=== PATIENT | male | born 1940 | race Caucasian/White ===

== ENCOUNTER → 2016-12-24 | Outpatient (CLI) | payer MEDICARE ==
--- NOTE | 2016-12-24 11:51 | FL ---
EXAMINATION TYPE: FL barium swallow DATE OF EXAM ORDERED: 12/24/2016 11:45 AM HISTORY: Parkinson's disease and dysphagia. COMPARISON: None. FINDINGS: The esophagus distended well with air and barium without evidence of obstructing or constr icting disease. Unfortunately, the patient frankly aspirated while drinking the barium. For this reason the examinati on was terminated. IMPRESSION: 1. MARKEDLY LIMITED EXAM SHOWING NO DEFINITE ABNORMALITY. 2. ALISIA ASPIRATION. A MODIFIED BARIUM SWALLOW WOULD BE SUGGESTED.
== END | disposition home or self-care (01) ==
LOC: RADFLWHC 11:03
PROVIDERS: ATTEND Psychiatry & Neurology Neurology
DX: R13.10 Dysphagia, unspecified (principal)
CPT/HCPCS: 74220

== ENCOUNTER → 2017-01-15 | Outpatient (CLI) | payer MEDICARE ==
--- NOTE | 2017-01-15 12:27 | FL ---
EXAMINATION TYPE: FL barium swallow w video DATE OF EXAM: 01/15/2017 11:43 AM COMPARISON: NONE HISTORY: Aspiration on barium swallow. The patient was evaluated in the lateral projection during real-time fluoroscopy, during ingestion of barium mixed with solids and liquids. No aspiration or laryngeal penetration. See report from [facility]. 1 minute 49 seconds fluoroscopy time
== END ==
LOC: RADFLMAIN 11:12
PROVIDERS: ATTEND Psychiatry & Neurology Neurology
DX: R13.10 Dysphagia, unspecified (principal)
CPT/HCPCS: 74230

== ENCOUNTER → 2018-10-05 | Outpatient (CLI) | payer MEDICARE ==
--- NOTE | 2018-10-05 11:46 | FL ---
ESOPHOGRAM. HISTORY: Dysphagia Esophagram was performed per the air contrast technique. The patient swallowed barium and effervesce nt crystals without difficulty or delay. Esophageal peristalsis and motility appear to be within normal limits. There is no evidence for filling defect, mass or diverticulum. No hiatal hernia seen. Subsequently single contrast cervical esophagram was performed which fails demonstrate evidence for a spiration. Mild penetration noted. No evidence for mass. IMPRESSION: 1. Mild penetration without evidence for aspiration. Otherwise unremarkable study.
--- NOTE | 2018-10-07 10:22 | US ---
EXAMINATION TYPE: US pelvic limited DATE OF EXAM: 10/05/2018 COMPARISON: NONE CLINICAL HISTORY: Nocturia R35.1,. TECHNIQUE: Targeted grayscale prevoid and postvoid images of the urinary bladder were obtained. FINDINGS: The urinary bladder appears anechoic. The postvoid urinary bladder measures 3.1 x 2.2 x 3.6 cm with a volume of 12.6 ml. IMPRESSION: No abnormal post void residual in this anechoic urinary bladder.
== END ==
LOC: RADUSWWP 10:08
PROVIDERS: ATTEND Family Medicine
DX: R35.1 Nocturia (principal); R13.10 Dysphagia, unspecified
CPT/HCPCS: 74220; 76857

== ENCOUNTER → 2019-07-19 | Outpatient (CLI) | payer MEDICARE ==
[2019-07-19 14:36] LABS: Basophils # (A) 0.1 k/uL (0-0.2); Basophils % (A) 1 %; Eosinophils # (A) 0.2 k/uL (0-0.7); Eosinophils % (A) 3 %; HCT 40.9 % (39.0-53.0); HGB 13.6 gm/dL (13.0-17.5); Lymphocytes # (A) 1.4 k/uL (1.0-4.8); Lymphocytes % (A) 20 %; MCHC 33.2 g/dL (31.0-37.0); MCV 93.4 fL (80.0-100.0); Mean Platelet Volume 7.8; Monocytes # (A) 0.4 k/uL (0-1.0); Monocytes % (A) 6 %; Neutrophils # (A) 4.9 k/uL (1.3-7.7); Neutrophils % (A) 68 %; Platelet Count 169 k/uL (150-450); RBC 4.38 m/uL (4.30-5.90); RDW 14.7 % (11.5-15.5); WBC 7.1 k/uL (3.8-10.6)
[2019-07-19 14:44] LABS: Calcium 9.6 mg/dL (8.4-10.2); Potassium 4.6 mmol/L (3.5-5.1)
== END | disposition home or self-care (01) ==
LOC: LABPAT 12:04
PROVIDERS: ATTEND Urology
DX: Z01.812 Encounter for preprocedural laboratory examination (principal); I10 Essential (primary) hypertension; N52.9 Male erectile dysfunction, unspecified; R35.0 Frequency of micturition; Z79.899 Other long term (current) drug therapy
CPT/HCPCS: 36415; 80048; 85025; 87086; 93005

== ENCOUNTER 2019-07-26 06:12 | Day surgery (SDC) | payer MEDICARE ==
[2019-07-24 12:49] VITALS: BMI 27.3
--- NOTE | 2019-07-25 09:22 | P.GSHP ---
History of Present Illness H&P Date: 07/23/19 Chief Complaint: Erectile dysfunction The patient is a 79-year-old male with a history of erectile dysfunction with poor rigidity which dates back over 5-10 years. He has used sildenafil and tadalafil in the past but these are no longer effective for him and he is no longer able to achieve an erection that is adequate for intercourse. I have reviewed other treatment options including intracorporeal injection therapy, vacuum assisted retraction and placement of a penile prosthesis. After reviewing treatment options the patient wishes to proceed with placement of an inflatable penile prosthesis and is admitted for this purpose. Patient has a history of Peyronie's disease and underwent a successful penile plication procedure at the [facility] in 2006. He no longer has problems with any significant penile curvature. - Constitutional Constitutional: Denies fatigue - Cardiovascular Cardiovascular: Denies edema, Denies palpitations, Denies shortness of breath - Respiratory Respiratory: Denies cough, Denies wheezing - Gastrointestinal Gastrointestinal: Denies abdominal pain - Genitourinary (Male) Genitourinary: Reports as per HPI Past Medical History Past Medical History: Hyperlipidemia Additional Past Medical History / Comment(s): Parkinson's disease, Quan's esophagitis Past Surgical History: Tonsillectomy Additional Past Surgical History / Comment(s): Penile plication procedure -2006 , colonoscopy and EGD, Bilateral cataract, sinus surgery with polypectomy, Left shoulder Smoking Status: Never smoker Past Drug Use History: None Reported - Past Family History Father Family Medical History: Cancer Medications and Allergies Home Medications Medication Instructions Recorded Confirmed Type Amantadine HCl [Amantadine] 100 mg PO BID 07/24/19 07/24/19 History Aspirin [Adult Low Dose Aspirin EC] 81 mg PO HS 07/24/19 07/24/19 History Carbidopa-Levodopa 25-100 mg 1 each PO 1800 07/24/19 07/24/19 History [Sinemet 25-100] Carbidopa-Levodopa 25-100 mg 2 each PO 1500 07/24/19 07/24/19 History [Sinemet 25-100] Carbidopa-Levodopa 25-100 mg 3 each PO 0800,1200 07/24/19 07/24/19 History [Sinemet 25-100] Fish Oil/Dha/Epa [Fish Oil 1,200 1 each PO DAILY 07/24/19 07/24/19 History mg Fish Oil] Multivitamins, Thera [Multivitamin 1 tab PO DAILY 07/24/19 07/24/19 History (formulary)] Tamsulosin [Flomax] 0.4 mg PO HS 07/24/19 07/24/19 History Allergies Allergy/AdvReac Type Severity Reaction Status Date / Time No Known Allergies Allergy Verified 07/24/19 12:34 Surgical - Exam - General well developed, well nourished, no distress - ENT no hearing loss - Neck no masses, no lymphadectomy - Respiratory normal expansion, clear to auscultation - Cardiovascular Rhythm: regular Abnormal Heart Sounds: systolic murmur - Abdomen Abdomen: soft, non tender, no organomegaly - Genitourinary normal penis with no external lesions, testicles non-tender - Neurologic other (Slight bradykinesia consistent with Parkinsons disease) Assessment and Plan (1) Erectile dysfunction Narrative/Plan: The patient will undergo placement of a [employer] inflatable penile prosthesis under general anesthesia. He is aware of the operative risks which include anesthesia, postoperative pain and swelling, infection or erosion of the prosthesis which might require removal, mechanical dysfunction and slight penile shortening. Status: Acute Code(s): N52.9 - MALE ERECTILE DYSFUNCTION, UNSPECIFIED SNOMED Code(s): 066118554
[~2019-07-26 06:12] MED LIST: DEXAMETHASONE SOD PHOSPHATE 10 MG/ML 1 ML VIAL IV ONE; GENTAMICIN 120 MG in SODIUM CHLORIDE 0.9% 100 ML IVPB ONE; HYDROmorphone 0.5 MG/0.5 ML SYRINGE IVP PRN; LACTATED RINGERS 1,000 ML IV SCH; LIDOCAINE 1% 20 ML VIAL (10MG/ML) FOR IV START INTRADERMA PRN; ONDANSETRON 4 MG/2 ML VIAL IVP ONE; ONDANSETRON 4 MG/2 ML VIAL IVP PRN; VANCOMYCIN 1,000 MG in SODIUM CHLORIDE 0.9% 250 ML IVPB ONE
[2019-07-26] MEDS ORDERED: fentaNYL (PF) 50 MCG/ML 2 ML AMP ONE (07:26)
[2019-07-26] MEDS ORDERED: ePHEDrine SULFATE/0.9% NACL/PF 50 MG/5 ML SYRINGE IV ONE (07:26)
[2019-07-26] MEDS ORDERED: LIDOCAINE 1% INJ 10MG/ML (20 ML MDV) ONE (07:26)
[2019-07-26] MEDS ORDERED: PROPOFOL 10 MG/ML 20 ML VIAL IV ONE (07:26)
[2019-07-26] MEDS ORDERED: ceFAZolin 1,000 MG, GENTAMICIN 80 MG in SODIUM CHLORIDE 0.9% 1,000 ML IRRIGATION ONE (08:00)
[2019-07-26 09:35] VITALS: TEMP 97.2
--- NOTE | 2019-07-26 09:44 | P.OP ---
Date of Procedure: 07/26/19 Preoperative Diagnosis: Erectile dysfunction Postoperative Diagnosis: Erectile dysfunction Procedure(s) Performed: Placement of inflatable penile prosthesis Implants: AMS 700 LGX inflatable penile prosthesis Anesthesia: GETA, none, other (General anesthesia via LMA) Surgeon: Jacobo Becerra Lead Retail Sales Associate #1: Cedrick Raymundo Estimated Blood Loss (ml): 100 Pathology: none sent Condition: stable Disposition: PACU Indications for Procedure: The patient is a 79-year-old male with a long history of erectile dysfunction. He had previously used Viagra and Cialis but over the last several years they have become in adequate. After reviewing treatment options the patient has elected to proceed with placement of an inflatable penile prosthesis. He has a history of Peyronie's disease and had previously undergone a penile plication procedure at the [facility] over 15 years ago. 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 Description of Procedure: The patient was taken the operating suite where adequate general anesthesia via LMA was instituted. He was placed in the supine position. Pneumatic compression stockings were applied to the lower legs. The hair was clipped from the suprapubic region and genitalia. The genitalia was scrubbed with Betadine soap. Betadine paint was then used to paint the lower abdomen and genitalia. Her abdomen and scrotum was then draped in a sterile fashion. A lower abdominal midline incision was made in the suprapubic region. Bleeding vessels were controlled using electrocautery. Using electrocautery the incision was carried down to the linea alba. The linea alba was incised and the prevesical space was developed using blunt dissection. The base the penis was then exposed using blunt and sharp dissection. The right corporal body was identified and a longitudinal corporal incision through the tunica albuginea was made dorsal laterally for approximately 2 cm. The corpora was then dilated proximally and distally to 13-Armenian using dilators. The c orpora was then measured and appeared to be 9 cm proximally and 10 cm distally. A symmetric incision was made in the left tunica albuginea. The left corporal body was dilated proximally and distally to 13-Armenian the left corporal body was measured and also appeared to be 9 cm proximally and 10 cm distally. It was elected to use an 18 cm AMS 700 LGX prosthesis with 1 cm were tip pit worker power shovel on each side. The right and left inflatable cylinders were then placed in the right and left corporal bodies using the introducing tool. The corporotomies were then each closed using running 3-0 PDS. The prosthesis appeared to inflate smoothly. There was some dorsal chordee however this was felt to be minimal enough not to require any specific treatment. A 100 cc reservoir was then placed in the prevesical space and the tubing was tunneled out through the right inguinal region and back into the scrotum. The reservoir was filled to 100 mL with normal saline. A straight connector was then used to connect the reservoir to the pump after excising redundant tubing. A pouch was made in the right anterior scrotum using blunt dissection and the lump was inserted into the pouch. The tubing was buried in the subcutaneous to in the prevesical space under the Francisca's fascia using 3-0 chromic. The skin was closed using running 3-0 Vicryl placed in soft cuticular's fashion. Mastisol and Steri-Strips were applied. The bladder was drained with a 16-Armenian catheter which was removed. Patient tolerated procedure well and left the operative room awake and in satisfactory condition. Blood loss was less than 100 mL. Final sponge needle and instrument counts were reported as correct.
[2019-07-26 09:53] VITALS: RESP 16
[2019-07-26] MEDS ORDERED: HYDROcodone/APAP 5-325MG 1 EACH TAB PO ONE (10:58)
[2019-07-26 11:50] VITALS: BP 171/48; PULSE 69
[2019-07-26] MEDS ORDERED: LACTATED RINGERS 1,000 ML IV ONE (12:00)
== END 2019-07-26 13:21 | disposition home or self-care (01) ==
LOC: OR 06:12
PROVIDERS: ATTEND Urology
DX: N52.9 Male erectile dysfunction, unspecified (principal); N48.89 Other specified disorders of penis; N40.0 Benign prostatic hyperplasia without lower urinary tract symptoms; Z87.438 Personal history of other diseases of male genital organs; E75.6 Lipid storage disorder, unspecified; G20 Parkinson's disease; K22.70 Barrett's esophagus without dysplasia; Z98.42 Cataract extraction status, left eye; Z98.41 Cataract extraction status, right eye; Z79.899 Other long term (current) drug therapy
CPT/HCPCS: 54405; C1813; J3370; J1580; J1100; J2405; J0690; J2001; J3010; J2704

== ENCOUNTER → 2019-10-10 | Outpatient (CLI) | payer MEDICARE ==
[2019-10-10 09:32] LABS: HCT 42.3 % (39.0-53.0); MCH 30.9 pg (25.0-35.0); MCHC 33.1 g/dL (31.0-37.0); MCV 93.5 fL (80.0-100.0); Mean Platelet Volume 7.9; Platelet Count 217 k/uL (150-450); RBC 4.52 m/uL (4.30-5.90); RDW 12.6 % (11.5-15.5); WBC 5.7 k/uL (3.8-10.6)
[2019-10-10 09:42] LABS: African American GFR (CKD) 71 (>60 ml/min/1.73 sqM); Anion Gap 9 mmol/L; Blood Urea Nitrogen 19 mg/dL (9-20); Calcium 10.4 mg/dL (8.4-10.2); Carbon Dioxide 27 mmol/L (22-30); Chloride 107 mmol/L (98-107); Glucose 108 mg/dL (74-99); Non-African American GFR(CKD) 61 (>60 ml/min/1.73 sqM); Potassium 4.2 mmol/L (3.5-5.1); Sodium 143 mmol/L (137-145)
[2019-10-10 09:43] LABS: Prothrombin Time 10.6 sec (9.0-12.0)
== END | disposition home or self-care (01) ==
LOC: LABWHC1 09:03
PROVIDERS: ATTEND Internal Medicine
DX: Z01.812 Encounter for preprocedural laboratory examination (principal); I25.10 Atherosclerotic heart disease of native coronary artery without angina pectoris
CPT/HCPCS: 36415; 80048; 85027; 85610

== ENCOUNTER → 2024-06-16 | Outpatient (CLI) | payer MEDICARE | END | disposition home or self-care (01) | LOC: LABPRL 12:00 | PROVIDERS: ATTEND Family Medicine | DX: R35.0 Frequency of micturition (principal) | CPT/HCPCS: 87086 ==

== ENCOUNTER 2024-12-18 16:30 | Inpatient (IN) | payer MEDICARE ==
[2024-12-18] MEDS: MORPHINE SULFATE 4 MG/ML SYRINGE IV STA (17:14)
[2024-12-18 17:23] LABS: Basophils % (A) 0 %; Eosinophils # (A) 0.1 k/uL (0-0.7); Eosinophils % (A) 2 %; HCT 39.9 % (39.0-53.0); Hypochromasia Slight; Lymphocytes # (A) 2.3 k/uL (1.0-4.8); Lymphocytes % (A) 30 %; MCH 30.9 pg (25.0-35.0); MCHC 32.7 g/dL (31.0-37.0); MCV 94.6 fL (80.0-100.0); Mean Platelet Volume 9.2; Monocytes # (A) 0.4 k/uL (0-1.0); Monocytes % (A) 6 %; Neutrophils # (A) 4.5 k/uL (1.3-7.7); Neutrophils % (A) 60 %; Platelet Count 196 k/uL (150-450); RBC 4.22 m/uL (4.30-5.90); RDW 13.2 % (11.5-15.5); WBC 7.6 k/uL (3.8-10.6)
[2024-12-18] MEDS: HYDROmorphone 1 MG/ML 1 ML SYRINGE IVP STA (17:36)
[2024-12-18 18:16] LABS: Partial Thromboplastin Time 24.4 sec (22.0-30.0); Prothrombin Time 11.1 sec (10.0-12.5)
[2024-12-18 18:17] LABS: ALT 6 U/L (4-49); AST 20 U/L (17-59); African American GFR (CKD) >90 (>60 ml/min/1.73 sqM); Albumin 4.2 g/dL (3.5-5.0); Alkaline Phosphatase 102 U/L (38-126); Anion Gap 10 mmol/L; Blood Urea Nitrogen 28 mg/dL (9-20); Calcium 10.1 mg/dL (8.4-10.2); Carbon Dioxide 25 mmol/L (22-30); Chloride 101 mmol/L (98-107); Glucose 122 mg/dL (74-99); Magnesium 2.1 mg/dL (1.6-2.3); Non-African American GFR(CKD) 80 (>60 ml/min/1.73 sqM); Potassium 4.2 mmol/L (3.5-5.1); Sodium 136 mmol/L (137-145); Total Bilirubin 0.7 mg/dL (0.2-1.3); Total Protein 7.3 g/dL (6.3-8.2)
[2024-12-18 18:24] LABS: NT-Pro-B-Type Natriuretic Pept 64 pg/mL
--- NOTE | 2024-12-18 19:27 | XR ---
EXAMINATION TYPE: XR chest 1V portable DATE OF EXAM: 12/18/2024 5:57 PM COMPARISON: None. CLINICAL INDICATION: Male, 84 years old with history of chest pain, TECHNIQUE: XR chest 1V portable view(s) obtained. FINDINGS: The heart size is normal. The pulmonary vasculature is prominent. There is a left perihilar and left lower lobe infiltrate. Correlate for atelectasis or pneumonia. Pul monary edema could be considered. Left-sided pacemaker is present. IMPRESSION: 1. Left lower lobe infiltrate. Correlate for atelectasis, pneumonia, or pulmonary edema. [facility], , 12/18/2024 7:25 PM
[2024-12-18 20:04] LABS: Influenza A Not Detected (Not Detectd); Influenza B Not Detected (Not Detectd); RSV Not Detected (Not Detectd)
--- NOTE | 2024-12-18 20:34 | CT ---
EXAMINATION TYPE: CT chest angio for PE DATE OF EXAM: 12/18/2024 7:34 PM COMPARISON: None. CLINICAL INDICATION: Male, 84 years old with history of chest pain, Chest pain, low BP., TECHNIQUE: CT of the chest is performed on a spiral scan at 2 mm thick sections. Study is performed with intravenous contrast timed for evaluation for pulmonary embolism. This will limit additional po rtions of the evaluation. 3-D MIP images reconstructed by the technologist are reviewed on the compu ter in the coronal and sagittal planes. Contrast used:90 mL of Isovue 370 with IV Contrast, (none if empty) Oral contrast used: (none if empty) CT DLP: 460.1 mGycm, Automated exposure control for dose reduction was used. FINDINGS: No persistent filling defects are evident to suggest an acute pulmonary embolism. No mediastinal or hilar adenopathy enlarged by CT criteria is evident. The ascending aorta diameter at the level of the main pulmonary artery is 4.5 cm. The main pulmonary artery diameter at the bifurcation is 3.0 cm. There is tortuosity of the descending thoracic aorta and proximal abdominal aorta. Mild bibasilar infiltrates are present slightly greater on the left than the right. Correlate for ate lectasis or pneumonia. Limited CT sections were through the upper abdomen. Upper abdomen appears unremarkable. IMPRESSION: 1. No acute pulmonary embolism. 2. Left lower lobe infiltrate with milder right lower lobe infiltrate. Correlate for pneumonia or ate lectasis. 3. Ascending thoracic aortic aneurysm 4.5 cm. [facility], , 12/18/2024 8:32 PM
[2024-12-18] MEDS: AZITHROMYCIN 500 MG TAB PO STA (21:34)
[2024-12-18] MEDS ORDERED: PNEUMONIA PROTOCOL UTILIZED 1 EACH MISC PO PRN (22:19)
--- NOTE | 2024-12-18 22:23 | ED ---
Chest Pain HPI - General Chief Complaint: Chest Pain Stated Complaint: Chest pain Time Seen by Provider: 12/18/24 16:34 Source: EMS Mode of arrival: EMS Limitations: no limitations - History of Present Illness Initial Comments: This patient is an 84-year-old man here with left-sided chest pain that came on 2 to 3 hours ago while the patient was just sitting at rest. The patient has a difficult time characterizing the pain but states that it is severe. He has not noticed any accompanying symptoms though the patient's states that he does cough. She attributed that to Parkinson's stating that he does frequently have cough associated with that. Patient denied vomiting, dyspnea, diaphoresis, palpitations or syncope. Patient has history of previous valve replacement surgery through [facility] in 2018, they believe it was aortic valve, but they are not able to give additional details other than stating that it required the largest caliber valve available. MD Complaint: chest pain Onset/Timin -: hour(s) Onset: during rest Pain Location: left chest Pain Radiation: back Severity: severe Quality: aching Consistency: constant Improves With: nothing Worsens With: nothing Other Symptoms: cough Treatments Prior to Arrival: aspirin - Related Data Home Medications Medication Instructions Recorded Confirmed Carbidopa-Levodopa 25-100 mg 3 tab PO QID@08,11,14,17 07/24/19 12/18/24 [Sinemet 25-100] Multivitamins, Thera [Multivitamin 1 tab PO W/LUNCH 07/24/19 12/18/24 (formulary)] Tamsulosin [Flomax] 0.4 mg PO BID@0800,1400 07/24/19 12/18/24 Aspirin EC [Ecotrin] 325 mg PO HS 12/18/24 12/18/24 Carbidopa-Levodopa ER 50-200Mg 1 tab PO HS 12/18/24 12/18/24 [Sinemet CR 50-200 mg] Docusate [Colace] 200 mg PO DAILY@1400 12/18/24 12/18/24 Glycopyrrolate [Robinul] 1 mg PO TID@0800,1100,1400 12/18/24 12/18/24 Magnesium (Unknown Dose) 1 tab PO DAILY@1700 12/18/24 12/18/24 Omeprazole 20 mg PO DAILY@0800 12/18/24 12/18/24 levETIRAcetam [Keppra] 500 mg PO HS 12/18/24 12/18/24 Allergies Allergy/AdvReac Type Severity Reaction Status Date / Time No Known Allergies Allergy Verified 12/18/24 19:21 Review of Systems ROS Statement: Those systems with pertinent positive or pertinent negative responses have been documented in the HPI. ROS Other: All systems not noted in ROS Statement are negative. Constitutional: Reports: weakness. Denies: fever Eyes: Denies: vision change Respiratory: Reports: as per HPI, cough. Denies: dyspnea, wheezes, hemoptysis Cardiovascular: Reports: chest pain, edema. Denies: palpitations, syncope Gastrointestinal: Denies: abdominal pain, nausea, vomiting, diarrhea Genitourinary: Denies: dysuria, hematuria Musculoskeletal: Denies: back pain Skin: Denies: rash Neurological: Denies: headache, weakness Past Medical History Additional Past Medical History / Comment(s): Parkinsons History of Any Multi-Drug Resistant Organisms: None Reported General Exam Limitations: no limitations Course Vital Signs 12/18/24 12/18/24 12/18/24 16:35 16:58 17:11 Temperature Pulse Rate 88 85 Pulse Rate [ 81 Sitting Rail Grinder] Respiratory 20 21 Rate Blood Pressure 101/47 100/56 O2 Sat by Pulse 91 L Oximetry 12/18/24 12/18/24 12/18/24 17:42 19:09 20:53 Temperature 97.6 F 98.0 F Pulse Rate 93 109 H 106 H Pulse Rate [ Sitting Rail Grinder] Respiratory 20 22 23 Rate Blood Pressure 154/88 116/62 111/74 O2 Sat by Pulse 93 L 88 L Oximetry 12/18/24 12/18/24 20:54 23:23 Temperature Pulse Rate 94 Pulse Rate [ Sitting Rail Grinder] Respiratory 26 H Rate Blood Pressure 101/64 O2 Sat by Pulse 91 L 90 L Oximetry Chest Pain MDM - MDM The patient had chest x-ray that I interpreted as being positive for infiltrate, no pneumothorax or congestive heart failure The patient had CT scan of the chest that I interpreted as negative for acute pulmonary embolism. There is thoracic aneurysm, does not appear to be any dissection. Was pt. sent in by a medical professional or institution (, PA, BAG MAKER, urgent care, hospital, or intermediate...) When possible be specific @ -[No] Did you speak to anyone other than the patient for history (EMS, parent, family, police, friend...)? What history was obtained from this source @ -[Patient's contributed significant history Did you review nursing and triage notes (agree or disagree)? Why? @ -[I reviewed and agree with nursing and triage notes] Were old charts reviewed (outside hosp., previous admission, EMS record, old EKG, old radiological studies, urgent care reports/EKG's, intermediate records)? Report findings @ -[Yes, old charts were reviewed] Differential Diagnosis (chest pain, altered mental status, abdominal pain women, abdominal pain men, vaginal bleeding, weakness, fever, dyspnea, syncope, headache, dizziness, GI bleed, back pain, seizure, CVA, palpatations, mental health, musculoskeletal)? @ -[Differential Chest Pain: Stable Angina, Unstable Angina, STEMI, NSTEMI Aortic Dissection, Pneumothorax, Musculoskeletal, Esophageal Spasm GERD, Cholecystitis, Pancreatitis, Zoster, this is not meant to be an all-inclusive list. EKG interpreted by me (3pts min.). @ -[I interpreted as above] X-rays interpreted by me (1pt min.). @ -[I interpreted as above CT interpreted by me (1pt min.). @ -[I interpreted as above U/S interpreted by me (1pt. min.). @ -[None done] What testing was considered but not performed or refused? (CT, X-rays, U/S, labs)? Why? @ -[None] What meds were considered but not given or refused? Why? @ -[None] Did you discuss the management of the patient with other professionals (professionals i.e. , PA, BAG MAKER, lab, RT, psych nurse, sr. social media & mobile manager, distribution lead, teacher, facility security officer, egg caser)? Give summary @ -[Case discussed with admitting physician and treatment recommendations are incorporated Was smoking cessation discussed for >3mins.? @ -[No] Was critical care preformed (if so, how long)? @ -[Yes, 30 minutes Were there social determinants of health that impacted care today? How? (Homelessness, low income, unemployed, alcoholism, drug addiction, transportation, low edu. Level, literacy, decrease access to med. care, prison, rehab)? @ -[No] Was there de-escalation of care discussed even if they declined (Discuss DNR or withdrawal of care, Hospice)? DNR status @ -[No] What co-morbidities impacted this encounter? (DM, HTN, Smoking, COPD, CAD, Cancer, CVA, ARF, Chemo, Hep., AIDS, mental health diagnosis, sleep apnea, morbid obesity)? @ -[Parkinson's disease. History of heart valve replacement. Was patient admitted / discharged? Hospital course, mention meds given and route, prescriptions, significant lab abnormalities, going to OR and other pertinent info. @ -Patient is an 84-year-old man here with chest pain and found to have probable pneumonia. The patient is admitted to have further care related to this. Will also have consult related to the aortic aneurysm and have pulmonology and cardiology as well. The patient does have extremely frail appearance and prognosis is guarded Undiagnosed new problem with uncertain prognosis? @ -[No] Drug Therapy requiring intensive monitoring for toxicity (Heparin, Nitro, Insulin, Cardizem)? @ -[No] Were any procedures done? @ -[No] Diagnosis/symptom? @ -[Acute chest pain Acute pneumonia Acute, or Chronic, or Acute on Chronic? @ -[Acute Uncomplicated (without systemic symptoms) or Complicated (systemic symptoms)? @ -[Complicated by dyspnea Side effects of treatment? @ -[No] Exacerbation, Progression, or Severe Exacerbation? @ -[No] Poses a threat to life or bodily function? How? (Chest pain, [place], [place], pneumonia, PE, COPD, DKA, ARF, appy, cholecystitis, CVA, Diverticulitis, Homicidal, Suicidal, threat to staff... and all critical care pts) @ -[Yes All treatments are based on ideal body weight as in ED triage Disposition Clinical Impression: Pneumonia Disposition: ADMITTED IP TO THIS HOSP Condition: Poor Is patient prescribed a controlled substance at d/c from ED?: No
[2024-12-19] MEDS: SODIUM CHLORIDE 0.9% 1,000 ML IV SCH ×2 (01:47→19:09)
[2024-12-19] MEDS ORDERED: HEPARIN SODIUM 1,000 UN/ML (10ML VL) IV PRN ×2 (04:46→05:27)
--- NOTE | 2024-12-19 04:49 | P.HPIM ---
History of Present Illness H&P Date: 12/18/24 Patient is a 84-year-old male with Parkinson's, GERD, erectile dysfunction, with a history of dysphagia here for chest pain via EMS. Patient is a poor historian and majority of the history was taken from his . At around 4:30 PM 12/18 patient experienced a nonradiating chest pain midsternal that was dull with 10 out of 10 intensity. No other symptoms were reported They denied productive cough, nausea, vomiting, palpitations, fever, sweats, chills, shortness of breath, abdominal pain, flank pain, changes in urination, changes in vision, headaches, focal weakness, facial asymmetry, changes in speech, recent illness, or recent hospitalization. He was given aspirin 325 mg by his before the EMS arrived. She also reported that he "chokes "when he eats and drinks. Social history: Tobacco: Never smoker Alcohol: Occasional alcohol intake Recreational drugs: No history of illicit or recreational drug use Travel: No recent travel Occupation: None Chest x-ray showed left lower lobe infiltrate to correlate for atelectasis, pneumonia, or pulmonary edema. CT angiography of the chest showed no acute pulmonary embolism, left lower lobe infiltrate with mild the right lower lobe infiltrate to correlate for pneumonia or atelectasis. Ascending thoracic aortic aneurysm 4.5 cm. EKG showed sinus rhythm with a rate of 84, ST depressions noted on lead II, V3-V6, QTc 400, left axis deviation. Labs on admission showed WBC 7.6, hemoglobin 13, platelet count 1 96,000, PT 11, INR 1, PTT 24.4, sodium 136, potassium 4.2, chloride 101, bicarb 25, BUN 28, creatinine 0.86, glucose 122, calcium 10.1, magnesium 2.1, troponin 0.015, BNP 64, albumin 4.2. Liver enzymes unremarkable. Cepheid 4 negative. On admission, temperature 98, pulse rate 109, respiratory rate 22, blood pressure 116/62, O2 saturation 93% on 2 L nasal cannula. ED documentation reviewed. Ceftriaxone and azithromycin initiated in the ED. Review of systems: Pertinent positives and negatives as discussed in HPI, a complete review of systems was performed and all other systems are negative. Physical examination: Vital signs reviewed General: non toxic, no distress, appears at stated age Derm: no unusual rashes/lesions, warm Head: atraumatic, normocephalic, symmetric Eyes: EOMI, anicteric sclera, pupils equal round reactive to light ENT: Nose and ears atraumatic Neck: No cervical lymphadenopathy, trachea midline, supple Mouth: no lip lesion, mucus membranes moist Cardiovascular: S1S2 reg, no murmur Lungs: Decreased breath sounds in the right lower lung field, no rhonchi, no rales, no accessory muscle use Abdominal: soft, nondistended, nontender to palpation, no guarding Ext: no gross muscle atrophy, no contractures, positive dorsalis pedis pulse bilateral, no edema Neuro: CN II-XI grossly intact, no gross focal neuro deficits, positive bilateral upper extremity pill-rolling movement Psych: Alert and oriented x 3, flat affect and mood Assessment/Plan: 84-year-old male with Parkinson's here for chest pain. Was noted to have left lower lobe and right lower lobe infiltrates on CT concerning for pneumonia. Thoracic aortic abdominal aneurysm also seen on CT. #. NSTEMI -EKG showed sinus rhythm with a rate of 84, ST depressions noted on lead II, V3- V6, QTc 400, left axis deviation. -Patient not in chest pain as of now -troponin 0.015 -->7 -Cardiac monitoring -Supplemental oxygen as needed -Heart healthy diet -Trend troponin -EKG as needed -Nitroglycerin prn for chest pain. 0.4 mg PO or Nitrobid topical -Given aspirin 325 mg once in the ED -Continue with aspirin 81 mg daily -Continue lipitor 80 mg daily -Metoprolol tartarate 12.5mg PO twice daily -Cardiology consulted #. Left and right lower lobe infiltrates, possibly from aspiration -Supportive oxygen as need -Received one-time dose Zithromax 500 mg p.o. and Rocephin 2 g IVPB in the ED -Blood culture ordered -Urine culture ordered -Legionella antigen ordered -SP consult -Monitor CBC monitor off antibiotics for now , if spikes fever or hypoxemia then re evaluate #. Thoracic aortic abdominal aneurysm - CT angiography of the chest showed ascending thoracic aortic aneurysm 4.5 cm. -Patient hemodynamically stable and asymptomatic. -vascular surgery consult -Will monitor for now Chronic Conditions: #. Parkinsonism #. GERD #. Erectile dysfunction -Continue home medications once reconciled F:NPO for now E: None for now N: Heart healthy diet A: Ambulate with assistance DVT ppx: IV heparin GI ppx: not indicated Dispo: The patient is admitted with an anticipated greater than 2 midnight stay for evaluation of pneumonia CODE STATUS: Full Discussed with: Patient Anticipated discharge place: Home Olinda Escudero MD PGY-1 IM Dictation was produced using [employer] dictation software. please excuse any grammatical, word or spelling errors. I have seen and evaluated the patient today. I Discussed the case with the resident and agree with the resident's findings I edited the assessment and plan as necessary as documented in the resident's note. Past Medical History Additional Past Medical History / Comment(s): Parkinsons History of Any Multi-Drug Resistant Organisms: None Reported Medications and Allergies Home Medications Medication Instructions Recorded Confirmed Type Carbidopa-Levodopa 25-100 mg 3 tab PO QID@08,11,14,17 07/24/19 12/18/24 History [Sinemet 25-100] Multivitamins, Thera [Multivitamin 1 tab PO W/LUNCH 07/24/19 12/18/24 History (formulary)] Tamsulosin [Flomax] 0.4 mg PO BID@0800,1400 07/24/19 12/18/24 History Aspirin EC [Ecotrin] 325 mg PO HS 12/18/24 12/18/24 History Carbidopa-Levodopa ER 50-200Mg 1 tab PO HS 12/18/24 12/18/24 History [Sinemet CR 50-200 mg] Docusate [Colace] 200 mg PO DAILY@1400 12/18/24 12/18/24 History Glycopyrrolate [Robinul] 1 mg PO TID@0800,1100,1400 12/18/24 12/18/24 History Magnesium (Unknown Dose) 1 tab PO DAILY@1700 12/18/24 12/18/24 History Omeprazole 20 mg PO DAILY@0800 12/18/24 12/18/24 History levETIRAcetam [Keppra] 500 mg PO HS 12/18/24 12/18/24 History Allergies Allergy/AdvReac Type Severity Reaction Status Date / Time No Known Allergies Allergy Verified 12/18/24 19:21 Physical Exam Vitals: Vital Signs Temp Pulse Pulse Resp BP Pulse Ox 12/18/24 23:23 94 26 H 101/64 90 L 12/18/24 20:54 91 L 12/18/24 20:53 98.0 F 106 H 23 111/74 88 L 12/18/24 19:09 109 H 22 116/62 93 L 12/18/24 17:42 97.6 F 93 20 154/88 12/18/24 17:11 85 21 100/56 12/18/24 16:58 81 12/18/24 16:35 88 20 101/47 91 L Intake and Output 12/18/24 12/18/24 12/19/24 14:59 22:59 06:59 Other: Weight 81.647 kg Results CBC & Chem 7: 12/19/24 04:00 12/19/24 04:00 Labs: Abnormal Lab Results - Last 24 Hours (Table) 12/18/24 12/18/24 Range/Units 17:11 17:45 RBC 4.22 L (4.30-5.90) m/uL Sodium 136 L (137-145) mmol/L BUN 28 H (9-20) mg/dL Glucose 122 H (74-99) mg/dL
[2024-12-19 04:53] LABS: African American GFR (CKD) 78 (>60 ml/min/1.73 sqM); Anion Gap 10 mmol/L; Blood Urea Nitrogen 32 mg/dL (9-20); Calcium 9.9 mg/dL (8.4-10.2); Carbon Dioxide 22 mmol/L (22-30); Chloride 100 mmol/L (98-107); Glucose 139 mg/dL (74-99); Non-African American GFR(CKD) 67 (>60 ml/min/1.73 sqM); Potassium 4.3 mmol/L (3.5-5.1); Sodium 132 mmol/L (137-145)
[2024-12-19] MEDS ORDERED: NITROGLYCERIN SL TABS 0.4 MG TAB SUBLINGUAL PRN ×2 (05:06→09:52)
[2024-12-19 05:10] LABS: Basophils % (A) 0 %; Eosinophils % (A) 0 %; HCT 42.2 % (39.0-53.0); HGB 13.9 gm/dL (13.0-17.5); Lymphocytes # (A) 1.1 k/uL (1.0-4.8); Lymphocytes % (A) 5 %; MCH 30.9 pg (25.0-35.0); MCHC 32.9 g/dL (31.0-37.0); MCV 93.9 fL (80.0-100.0); Mean Platelet Volume 7.8; Monocytes # (A) 1.1 k/uL (0-1.0); Monocytes % (A) 6 %; Neutrophils # (A) 17.6 k/uL (1.3-7.7); Neutrophils % (A) 88 %; Platelet Count 224 k/uL (150-450); RDW 12.9 % (11.5-15.5); WBC 19.8 k/uL (3.8-10.6)
[2024-12-19] MEDS: HEPARIN SOD,PORK IN 0.45% NACL 25,000 UNIT in 0.45% NACL 1 250ML.BAG IV SCH ×2 (05:41→06:19)
[2024-12-19] MEDS: HEPARIN SODIUM 1,000 UN/ML (10ML VL) IV ONE ×2 (05:46→06:19)
[2024-12-19] MEDS: ASPIRIN 81 MG PO SCH (08:37)
[2024-12-19] MEDS: METOPROLOL TARTRATE 12.5 MG TAB PO SCH (08:47)
[2024-12-19] MEDS: ASPIRIN 325 MG TAB PO STA (08:47)
[2024-12-19] MEDS: PANTOPRAZOLE 40 MG TABLET PO SCH (08:47)
[2024-12-19] MEDS: CARBIDOPA-LEVODOPA 25-100 MG 1 EACH TAB PO SCH (08:48)
[2024-12-19] MEDS: TAMSULOSIN 0.4 MG CAP.ER.24H PO SCH (08:48)
[2024-12-19] MEDS ORDERED: AZITHROMYCIN 500 MG TAB PO SCH (09:00)
--- NOTE | 2024-12-19 09:21 | P.GSCN ---
History of Present Illness Consult date: 12/19/24 Reason for Consult: Thoracic AAA Requesting physician: Olinda Escudero History of present illness: This a pleasant 84-year-old male who was brought into the emergency department yesterday for complaints of new onset chest pain who apparently was rating it a 10 out of 10. Past medical history includes Parkinson's disorder, GERD, dysphagia and history of aortic valve replacement in 2019 at [facility]. Patient was admitted as an NSTEMI, he is currently on cardiac stepdown unit with nonrebreather. He is denying any abdominal pain or chest pain at this time. States he is feeling short of breath, he has rapid respirations. He had a CT angiogram of the chest as part of his evaluation in the emergency department that reported no acute pulmonary embolism, with findings of a ascending thoracic abdominal aneurysm measuring 4.5 cm. Vascular surgery was consulted for the above. Patient's troponin jumped up to 7.9 from 0.015 on admission, he was started on a heparin drip. He is currently on a nonrebreather with 15 L with oxygen saturation at 91%. Influenza, RSV and COVID-19 serologies are negative. He has been afebrile. No reported recent illnesses. Patient significant other is at the bedside she states she is the power of collections attorney. She is demanding that patient be transferred to [facility]. Review of Systems A 14 point review systems was completed all pertinent positives and negatives as stated in the HPI. Past Medical History Additional Past Medical History / Comment(s): Parkinsons History of Any Multi-Drug Resistant Organisms: None Reported Past Surgical History: No Surgical Hx Reported Smoking Status: Former smoker Medications and Allergies Home Medications Medication Instructions Recorded Confirmed Type Carbidopa-Levodopa 25-100 mg 3 tab PO QID@08,11,14,17 07/24/19 12/18/24 History [Sinemet 25-100] Multivitamins, Thera [Multivitamin 1 tab PO W/LUNCH 07/24/19 12/18/24 History (formulary)] Tamsulosin [Flomax] 0.4 mg PO BID@0800,1400 07/24/19 12/18/24 History Aspirin EC [Ecotrin] 325 mg PO HS 12/18/24 12/18/24 History Carbidopa-Levodopa ER 50-200Mg 1 tab PO HS 12/18/24 12/18/24 History [Sinemet CR 50-200 mg] Docusate [Colace] 200 mg PO DAILY@1400 12/18/24 12/18/24 History Glycopyrrolate [Robinul] 1 mg PO TID@0800,1100,1400 12/18/24 12/18/24 History Magnesium (Unknown Dose) 1 tab PO DAILY@1700 12/18/24 12/18/24 History Omeprazole 20 mg PO DAILY@0800 12/18/24 12/18/24 History levETIRAcetam [Keppra] 500 mg PO HS 12/18/24 12/18/24 History Allergies Allergy/AdvReac Type Severity Reaction Status Date / Time No Known Allergies Allergy Verified 12/18/24 19:21 Surgical - Exam Vital Signs Pulse Resp BP Pulse Ox 88 20 101/47 91 L 12/18/24 16:35 12/18/24 16:35 12/18/24 16:35 12/18/24 16:35 General appearance: The patient is drowsy but alert, oriented, rapid respirations with nonrebreather. HET: Head is normocephalic and atraumatic. . Neck: Supple. Heart: Regular. Lungs: Equal expansion, increased respiratory effort. Abdomen: Soft, nontender, nondistended. Extremities: Normal skin color and turgor. Lower extremities with minimal swelling, warm to the touch with palpable DP pulses bilaterally. Neurological: Patient appears alert and oriented. Appears fatigued. Results - Labs 12/19/24 04:00 12/19/24 04:00 Abnormal Lab Results - Last 24 Hours (Table) 12/18/24 12/18/24 12/19/24 Range/Units 17:11 17:45 04:00 WBC 19.8 H (3.8-10.6) k/uL RBC 4.22 L (4.30-5.90) m/uL Neutrophils # 17.6 H (1.3-7.7) k/uL Monocytes # 1.1 H (0-1.0) k/uL Sodium 136 L (137-145) mmol/L BUN 28 H (9-20) mg/dL Glucose 122 H (74-99) mg/dL Troponin I (0.000-0.034) ng/mL 02/18/25 02/18/25 Range/Units 04:00 04:35 WBC (3.8-10.6) k/uL RBC (4.30-5.90) m/uL Neutrophils # (1.3-7.7) k/uL Monocytes # (0-1.0) k/uL Sodium 132 L (137-145) mmol/L BUN 32 H (9-20) mg/dL Glucose 139 H (74-99) mg/dL Troponin I 7.970 H* (0.000-0.034) ng/mL Diabetes panel 12/18/24 12/19/24 Range/Units 17:45 04:00 Sodium 136 L 132 L (137-145) mmol/L Potassium 4.2 4.3 (3.5-5.1) mmol/L Chloride 101 100 (98-107) mmol/L Carbon Dioxide 25 22 (22-30) mmol/L BUN 28 H 32 H (9-20) mg/dL Creatinine 0.86 1.02 (0.66-1.25) mg/dL Glucose 122 H 139 H (74-99) mg/dL Calcium 10.1 9.9 (8.4-10.2) mg/dL AST 20 (17-59) U/L ALT 6 (4-49) U/L Alkaline Phosphatase 102 (38-126) U/L Total Protein 7.3 (6.3-8.2) g/dL Albumin 4.2 (3.5-5.0) g/dL Calcium panel 12/18/24 12/19/24 Range/Units 17:45 04:00 Calcium 10.1 9.9 (8.4-10.2) mg/dL Albumin 4.2 (3.5-5.0) g/dL Pituitary panel 12/18/24 12/19/24 Range/Units 17:45 04:00 Sodium 136 L 132 L (137-145) mmol/L Potassium 4.2 4.3 (3.5-5.1) mmol/L Chloride 101 100 (98-107) mmol/L Carbon Dioxide 25 22 (22-30) mmol/L BUN 28 H 32 H (9-20) mg/dL Creatinine 0.86 1.02 (0.66-1.25) mg/dL Glucose 122 H 139 H (74-99) mg/dL Calcium 10.1 9.9 (8.4-10.2) mg/dL Adrenal panel 12/18/24 12/19/24 Range/Units 17:45 04:00 Sodium 136 L 132 L (137-145) mmol/L Potassium 4.2 4.3 (3.5-5.1) mmol/L Chloride 101 100 (98-107) mmol/L Carbon Dioxide 25 22 (22-30) mmol/L BUN 28 H 32 H (9-20) mg/dL Creatinine 0.86 1.02 (0.66-1.25) mg/dL Glucose 122 H 139 H (74-99) mg/dL Calcium 10.1 9.9 (8.4-10.2) mg/dL Total Bilirubin 0.7 (0.2-1.3) mg/dL AST 20 (17-59) U/L ALT 6 (4-49) U/L Alkaline Phosphatase 102 (38-126) U/L Total Protein 7.3 (6.3-8.2) g/dL Albumin 4.2 (3.5-5.0) g/dL - Imaging Comments: Chest CT angiogram reports no acute pulmonary embolism, left lower lobe infiltrate with milder right lower lobe infiltrate. Correlate for pneumonia or atelectasis. Ascending thoracic aortic aneurysm 4.5 cm Assessment and Plan Assessment: 1. Ascending thoracic abdominal aneurysm measuring 4.5 cm 2. Chest pain 3. Elevated troponin 5. History of aortic valve replacement 6. Parkinson's disease Plan: CTA chest reviewed with an ascending thoracic abdominal aneurysm measuring 4.5 cm. Due to the aneurysm being ascending thoracic AA we will recommend and consult cardiothoracic surgery for further evaluation and surgical recommendations. Continue with recommendations and workup from cardiology, rest of medical management per primary medical team. Thank you for this consultation, vascular surgery will sign off at this time. The impression and plan of care has been dictated as directed. I performed a history and examination of this patient, discussed the same with the dictator. I agree with the dictator's note ,documented as a scribe. Any additional findings or plans will be noted.
[2024-12-19] MEDS ORDERED: ALPRAZolam 0.5 MG TAB PO PRN (09:52)
[2024-12-19] MEDS ORDERED: ASPIRIN 325 MG TAB PO STA (09:52)
[2024-12-19] MEDS ORDERED: ALPRAZolam 0.25 MG TAB PO PRN (09:52)
--- NOTE | 2024-12-19 10:18 | P.PN ---
Subjective Progress Note Date: 12/19/24 Hospital Course: 84-year-old male with history of aortic valve replacement in 2019, Parkinson's, GERD, erectile dysfunction, with a history of dysphagia here for chest pain via EMS. Chest x-ray showed left lower lobe infiltrate to correlate for atelectasis, pneumonia, or pulmonary edema. CT angiography of the chest showed no acute pulmonary embolism, left lower lobe infiltrate with mild the right lower lobe infiltrate to correlate for pneumonia or atelectasis. Ascending thoracic aortic aneurysm 4.5 cm. EKG showed sinus rhythm with a rate of 84, ST depressions noted on lead II, V3-V6, QTc 400, left axis deviation. Labs on admission showed WBC 7.6, hemoglobin 13, platelet count 1 96,000, PT 11, INR 1, PTT 24.4, sodium 136, potassium 4.2, chloride 101, bicarb 25, BUN 28, creatinine 0.86, glucose 122, calcium 10.1, magnesium 2.1, troponin 0.015, BNP 64, albumin 4.2. Liver enzymes unremarkable. Cepheid 4 negative. On admission, temperature 98, pulse rate 109, respiratory rate 22, blood pressure 116/62, O2 saturation 93% on 2 L nasal cannula. Patient was started on IV antibiotics. Initial troponin was 0.015 which increased to 7.97. Repeat EKG shows minimal ST elevations and anterior leads, inferior and lateral ST depressions now resolved. Patient currently on heparin drip. Cardiology consulted. Respiratory status worsening, patient placed on BiPAP. Subjective: Patient seen and examined at bedside. Complaining of respiratory distress. Not complaining of any active chest pain. Significant other at bedside Pertinent positives and negatives as discussed above, a complete review of systems was performed and all other systems are negative. Vitals Signs Reviewed. General: Nontoxic, in respiratory distress, appears at stated age Derm: Warm, dry Head: Atraumatic, normocephalic, symmetric Eyes: EOMI, no lid lag, anicteric sclera Mouth: No lip lesion, mucus membranes moist Cardiovascular: S1S2 reg, no murmur Lungs: Bilateral rhonchi, no accessory muscle use, supplemental oxygen Abdominal: Soft, nontender to palpation, no guarding, no appreciable organome katelin Ext: No gross muscle atrophy, no edema, no contractures Neuro: CN II-XI grossly intact, no focal neuro deficits Psych: Alert, oriented, appropriate affect Data Reviewed Today: Pertinent Labs: WBC 19.8, sodium 132, creatinine 1.02, troponin 7.97 Imaging: EKG independently interpreted from this morning, shows sinus rhythm with minor ST depressions in lateral leads, otherwise improved compared to prior EKG Assessment and Plan: Active: Acute NSTEMI -Continue heparin drip, monitor APTT -Discussed with cardiology team, patient will be going for cardiac cath -Continue aspirin 81 mg, atorvastatin 80 mg-nitroglycerin topical 1 inch every 6 hours -Echocardiogram pending -Patient continued on his metoprolol to tartrate 12.5 twice daily -Stop IV fluids Acute hypoxic respiratory failure, secondary to above versus aspiration pneumonia Leukocytosis, likely reactive in the setting of LA -Patient had normal white count on admission -Was given 1 dose of azithromycin and 1 dose of IV ceftriaxone -Cultures pending -Speech consulted, currently monitoring off of IV antibiotics Mild hyponatremia -Likely hypervolemic -Continue to monitor off of IV fluids -Repeat BMP tomorrow Thoracic and abdominal aortic aneurysm -Discussed with vascular surgery, CT surgery also consulted -No current plans for intervention Chronic: Parkinson's disease Seizure disorder BPH History of aortic valve replacement GERD DVT ppx: Heparin drip Code status: Full code Anticipated discharge place: Pending clinical course Anticipated discharge time: Pending clinical course Objective - Vital Signs Vital signs: Vital Signs Temp 98.6 F 12/19/24 08:00 Pulse 105 H 12/19/24 08:00 Resp 30 H 12/19/24 08:00 BP 104/48 12/19/24 08:00 Pulse Ox 91 L 12/19/24 08:01 FiO2 100 12/19/24 09:52 Intake & Output 12/18/24 12/19/24 12/19/24 18:59 06:59 18:59 Weight 81.647 kg 81.647 kg Other: # Voids 2 - Labs CBC & Chem 7: 12/19/24 04:00 12/19/24 04:00 Labs: Abnormal Lab Results - Last 24 Hours (Table) 12/18/24 12/18/24 12/19/24 Range/Units 17:11 17:45 04:00 WBC 19.8 H (3.8-10.6) k/uL RBC 4.22 L (4.30-5.90) m/uL Neutrophils # 17.6 H (1.3-7.7) k/uL Monocytes # 1.1 H (0-1.0) k/uL Sodium 136 L (137-145) mmol/L BUN 28 H (9-20) mg/dL Glucose 122 H (74-99) mg/dL Troponin I (0.000-0.034) ng/mL 12/19/24 12/19/24 Range/Units 04:00 04:35 WBC (3.8-10.6) k/uL RBC (4.30-5.90) m/uL Neutrophils # (1.3-7.7) k/uL Monocytes # (0-1.0) k/uL Sodium 132 L (137-145) mmol/L BUN 32 H (9-20) mg/dL Glucose 139 H (74-99) mg/dL Troponin I 7.970 H* (0.000-0.034) ng/mL
--- NOTE | 2024-12-19 10:20 | P.GSCN ---
History of Present Illness Consult date: 12/19/24 Reason for Consult: Ascending aortic aneurysm Requesting physician: Jerri Vee History of present illness: This is an 84-year-old gentleman who follows outpatient with Dr. Escalera for primary care. He has a previous medical history of aortic valve replacement at [facility], Parkinson's, dysphagia, GERD, dual-chamber pacemaker placement, and previous tobacco dependence. He presented to [facility] emergency room last night with complaints of sudden onset left-sided chest pain at rest. In the emergency room chest x-ray revealed left lower lobe infiltrate. Chest CTA revealed no acute pulmonary embolism, however it confirmed a left lower lobe infiltrate along with incidental finding of ascending aortic aneurysm measuring 4.5 cm without apparent dissection. Lab work revealed WBC 7.6, hemoglobin 13, INR 1, creatinine 0.86, BNP 64, first troponin negative, and viral screen negative. Initially he was admitted to the medical surgical unit for pneumonia. Second troponin came back positive at 7.97, he was started on IV heparin and transferred to [facility] with consultation placed to cardiology for non-STEMI along with vascular for the ascending aneurysm who then placed consultation to cardiothoracic surgery. Review of Systems Review of systems was completed and was negative except as noted. Of note patient is poor historian, most of patient's symptomatology taken from chart and girlfriend at bedside - Cardiovascular Reports as per HPI, Reports chest pain, Reports shortness of breath Past Medical History Past Medical History: GERD/Reflux Additional Past Medical History / Comment(s): Parkinsons; dysphagia; aortic valve stenosis History of Any Multi-Drug Resistant Organisms: None Reported Past Surgical History: Pacemaker Additional Past Surgical History / Comment(s): TAVR at [facility]; dual-chamber pacemaker; penile implant Smoking Status: Former smoker Medications and Allergies Home Medications Medication Instructions Recorded Confirmed Type Carbidopa-Levodopa 25-100 mg 3 tab PO QID@08,11,14,17 07/24/19 12/18/24 History [Sinemet 25-100] Multivitamins, Thera [Multivitamin 1 tab PO W/LUNCH 07/24/19 12/18/24 History (formulary)] Tamsulosin [Flomax] 0.4 mg PO BID@0800,1400 07/24/19 12/18/24 History Aspirin EC [Ecotrin] 325 mg PO HS 12/18/24 12/18/24 History Carbidopa-Levodopa ER 50-200Mg 1 tab PO HS 12/18/24 12/18/24 History [Sinemet CR 50-200 mg] Docusate [Colace] 200 mg PO DAILY@1400 12/18/24 12/18/24 History Glycopyrrolate [Robinul] 1 mg PO TID@0800,1100,1400 12/18/24 12/18/24 History Magnesium (Unknown Dose) 1 tab PO DAILY@1700 12/18/24 12/18/24 History Omeprazole 20 mg PO DAILY@0800 12/18/24 12/18/24 History levETIRAcetam [Keppra] 500 mg PO HS 12/18/24 12/18/24 History Allergies Allergy/AdvReac Type Severity Reaction Status Date / Time No Known Allergies Allergy Verified 12/18/24 19:21 Surgical - Exam Vital Signs Pulse Resp BP Pulse Ox 88 20 101/47 91 L 12/18/24 16:35 12/18/24 16:35 12/18/24 16:35 12/18/24 16:35 CONSTITUTIONAL: Drowsy but awake, appears out of breath, cooperative EYES: Pupils equal, round, reactive to light, normal ocular movement ENT: Dry mucous membranes NECK: No masses, no bruits, trachea midline RESPIRATORY: Lungs sounds coarse throughout, left worse than right. Respirations tachypneic. Currently on nonrebreather with oxygen saturation 93% CARDIOVASCULAR: S1, S2 present. Tacky but regular rate and rhythm, sinus tach on telemetry. Palpable peripheral pulses bilaterally. Trace bilateral lower extremity edema present. No calf pain or tenderness noted GASTROINTESTINAL: Abdomen soft, nontender, nondistended without masses or organomegaly noted. There is no rebound or guarding present. Active bowel sounds present 4 quadrants. GENITOURINARY: Deferred INTEGUMENTARY: Skin is warm and dry NEUROLOGIC: Cranial nerves II through XII intact MUSKULOSKELETAL: Able to move all extremities, strength equal bilaterally, normal posture PSYCHIATRIC: Alert and oriented to person place Results - Labs 12/19/24 04:00 12/19/24 04:00 Abnormal Lab Results - Last 24 Hours (Table) 12/18/24 12/18/24 12/19/24 Range/Units 17:11 17:45 04:00 WBC 19.8 H (3.8-10.6) k/uL RBC 4.22 L (4.30-5.90) m/uL Neutrophils # 17.6 H (1.3-7.7) k/uL Monocytes # 1.1 H (0-1.0) k/uL Sodium 136 L (137-145) mmol/L BUN 28 H (9-20) mg/dL Glucose 122 H (74-99) mg/dL Troponin I (0.000-0.034) ng/mL 12/19/24 12/19/24 Range/Units 04:00 04:35 WBC (3.8-10.6) k/uL RBC (4.30-5.90) m/uL Neutrophils # (1.3-7.7) k/uL Monocytes # (0-1.0) k/uL Sodium 132 L (137-145) mmol/L BUN 32 H (9-20) mg/dL Glucose 139 H (74-99) mg/dL Troponin I 7.970 H* (0.000-0.034) ng/mL Diabetes panel 12/18/24 12/19/24 Range/Units 17:45 04:00 Sodium 136 L 132 L (137-145) mmol/L Potassium 4.2 4.3 (3.5-5.1) mmol/L Chloride 101 100 (98-107) mmol/L Carbon Dioxide 25 22 (22-30) mmol/L BUN 28 H 32 H (9-20) mg/dL Creatinine 0.86 1.02 (0.66-1.25) mg/dL Glucose 122 H 139 H (74-99) mg/dL Calcium 10.1 9.9 (8.4-10.2) mg/dL AST 20 (17-59) U/L ALT 6 (4-49) U/L Alkaline Phosphatase 102 (38-126) U/L Total Protein 7.3 (6.3-8.2) g/dL Albumin 4.2 (3.5-5.0) g/dL Calcium panel 12/18/24 12/19/24 Range/Units 17:45 04:00 Calcium 10.1 9.9 (8.4-10.2) mg/dL Albumin 4.2 (3.5-5.0) g/dL Pituitary panel 12/18/24 12/19/24 Range/Units 17:45 04:00 Sodium 136 L 132 L (137-145) mmol/L Potassium 4.2 4.3 (3.5-5.1) mmol/L Chloride 101 100 (98-107) mmol/L Carbon Dioxide 25 22 (22-30) mmol/L BUN 28 H 32 H (9-20) mg/dL Creatinine 0.86 1.02 (0.66-1.25) mg/dL Glucose 122 H 139 H (74-99) mg/dL Calcium 10.1 9.9 (8.4-10.2) mg/dL Adrenal panel 12/18/24 12/19/24 Range/Units 17:45 04:00 Sodium 136 L 132 L (137-145) mmol/L Potassium 4.2 4.3 (3.5-5.1) mmol/L Chloride 101 100 (98-107) mmol/L Carbon Dioxide 25 22 (22-30) mmol/L BUN 28 H 32 H (9-20) mg/dL Creatinine 0.86 1.02 (0.66-1.25) mg/dL Glucose 122 H 139 H (74-99) mg/dL Calcium 10.1 9.9 (8.4-10.2) mg/dL Total Bilirubin 0.7 (0.2-1.3) mg/dL AST 20 (17-59) U/L ALT 6 (4-49) U/L Alkaline Phosphatase 102 (38-126) U/L Total Protein 7.3 (6.3-8.2) g/dL Albumin 4.2 (3.5-5.0) g/dL - Imaging Chest x-ray: report reviewed, image reviewed CT scan - chest: report reviewed, image reviewed EKG: image reviewed Assessment and Plan Assessment: Incidental finding of 4.5 cm ascending aortic aneurysm without evidence of dissection Non-STEMI, second troponin 7.97 Acute hypoxic respiratory failure, currently on nonrebreather, about to start BiPAP Left lower lobe pneumonia, possibly aspiration Chest pain, shortness of breath, secondary to above [facility] Parkinson's Dysphagia GERD Dual-chamber pacemaker placement Previous tobacco dependence Plan: The patient was seen and examined at the bedside with significant other present. Chart/diagnostics reviewed. The case was discussed in detail with Dr. Lawson. Ascending aortic aneurysm is an incidental finding, not large enough to require surgical intervention at 4.5 cm. There is no dissection. No surgical intervention warranted at this time. He should continue surveillance with CAT scans every 6 months. Blood pressure should be well-controlled. Medical management of other comorbidities per internal medicine, cardiology. At this time significant other is requesting transfer to [facility]. Case management is trying to establish medical decision making power. Thank you for this consult, please call us with any further questions as there is no surgical intervention required at this time. I have personally seen and examined the patient, performed the documentation and the assessment and plan as written. Number of minutes spent on the visit: 30. DAVID Lee
[2024-12-19 10:56] LABS: INR 1.1 (<1.2); Partial Thromboplastin Time 53.3 sec (22.0-30.0)
[2024-12-19] MEDS: HEPARIN SODIUM,PORCINE (1 ML) 2,500 UNIT in SODIUM CHLORIDE 0.9% 250 ML IRRIGATION PRN (11:10)
[2024-12-19] MEDS: IV FLUID CONTINUATION 1,000 ML IV ONE (11:10)
[2024-12-19] MEDS: HEPARIN SODIUM,PORCINE 10,000 UNIT in SODIUM CHLORIDE 0.9% 1,000 ML IRRIGATION PRN (11:10)
[2024-12-19] MEDS: ASPIRIN 325 MG TAB PO ONE (11:22)
[2024-12-19] MEDS: LIDOCAINE 1% INJ 10MG/ML (20 ML MDV) SQ ONE (11:23)
[2024-12-19] MEDS: MIDAZOLAM 2 MG/2 ML VIAL IVP ONE (11:26)
[2024-12-19] MEDS: IOPAMIDOL-370 100ML BTL INJ ONE ×4 (12:20→12:21)
[2024-12-19] MEDS ORDERED: RX INFO: IV CONTRAST WAS GIVEN 1 EACH MISC MISCELLANE PRN (12:33)
--- NOTE | 2024-12-19 12:47 | P.CARDCATH ---
Date of Procedure: 12/19/24 Description of Procedure: Cardiac Catheterization: The patient is an 84-year-old male status post TAVR, permanent pacemaker implantation, ascending aortic aneurysm, advanced Parkinson disease who has been followed in the past at [facility] but has not been seen for a few years who presented with an episode of chest discomfort and dyspnea. He had initial ST segment depression on the lateral leads that subsequently improved and he had evidence of troponin elevations. Recommendations were made regarding cardiac catheterization, the risks and the complications were discussed with the patient and his family who are in full understanding and agreement. Procedure Description: Patient was brought to receiver/laborer in fasting semi-sedated state after receiving Fentanyl and Benadryl achieiving moderate conscious sedated state. Using Xylocaine Anesthesia and modified Seldinger technique, a 6-Martiniquais sheath was introduced in the right femoral artery . Subsequently, selective coronary angiography was performed using a 6 Martiniquais CLS 3.5 to obtain images of the LAD, attempt prior to that to use a 6 Martiniquais 4 bend left Remedios, 4.5, CLS 4 were unsuccessful. Attempt to cannulate the right coronary artery selectively using a 6 Martiniquais 4 bend right Remedios, 5 bend, multipurpose B2 and 6 Martiniquais AL 1 were unsuccessful. Nonselective images of the right coronary artery were performed. Multiple views of the coronary artery including hemiaxial views were obtained. The CLS 3.5 catheter was used to cross the aortic valve and LVEDP was calculated. A 6 Martiniquais pigtail catheter was positioned in the ascending aorta and an BAHAMIAN view of the ascending aorta was performed. Following that, catheter and sheath were removed. Hemostasis was obtained with deployment of an Angio-Seal. There was no immediate complication. Patient was returned to room in stable condition. He had a transient episode of hypotension and EKG changes that resolved rapidly. Findings: Left main: This is a large size vessel, bifurcating into LAD and left circumflex, left main has no obstructive disease LAD: This is a large size vessel, reaching to the apex, right giving rise to a diagonal branch. The LAD does not have any significant obstructive disease. Left circumflex: This is a moderately sized vessel giving rise to an obtuse marginal branch that has no evidence of obstructive disease RCA: This is a dominant vessel, has a stent in the midsegment. The proximal right coronary artery has a 40 to 50% plaque the rest of the vessel appears to be patent. The vessel could not be selectively cannulated. Left Ventriculogram: Not performed Hemodynamics: There was a 20 mm gradient across the aortic valve, LVEDP was 20- 24 mmHg Aortogram: Performed in the BAHAMIAN view and helping visualizing the right coronary artery with evidence of 4+ aortic regurgitation Conclusion: 1. No evidence of high-grade stenosis in the LAD and left circumflex 2. Moderate disease in the RCA with patent stent to the RCA with nonselective images 3. 20 mm gradient across the aortic valve 4. 4+ aortic regurgitation Recommendations: I have recommended to maximize medical therapy at this time, coronary angiography was difficult because of the aortic aneurysm and the prior TAVR but showed no evidence of critical stenosis or acute occlusion. Further evaluation of the aortic valve prosthesis will be done to evaluate aortic regurgitation. The findings and the recommendations were discussed with the patient and the family and they were in full understanding and agreement. Duration of sedation is 58 minutes.
--- NOTE | 2024-12-19 15:54 | P.CRDCN ---
History of Present Illness History of present illness: HISTORY OF PRESENT ILLNESS: This is a 84-year-old male with a past medical history significant for Parkinson's disease, seizures, pacemaker implantation, and valve replacement in 2019 at [facility]. Patient does not follow with a public works manager. We have been asked to see the patient in consultation for non-STEMI. Patient examined at the bedside this morning by Dr. Dumont. Patient presented to the hospital for chief complaint of chest discomfort. Patient's girlfriend is at the bedside who states that patient started having chest pain yesterday around 4pm yesterday. He was sitting down at home when the pain started. The patient was found to have elevated troponins and was started on IV heparin. DIAGNOSTICS: - EKG reveals with T wave inversions in lead I and aVL and diffuse ST d epression. - Chest xray left lower lobe infiltrate. Correlate for atelectasis, pneumonia, or pulmonary edema - Laboratory data: WBC 19.8. Hemoglobin 13.9. Platelet count 224. Sodium 132. Potassium 4.3. BUN 32. Creatinine 1.02. Troponin 0.015. 7.970. 8.960. - Current home cardiac medications include aspirin 325 mg at night. - No previous echocardiogram, stress test, or cardiac catheterization available in EMR for review REVIEW OF SYSTEMS: At the time of my exam: CONSTITUTIONAL: Denies fever or chills. HEENT: Denies blurred vision, vision changes, or eye pain. Denies hemoptysis CARDIOVASCULAR: Reports mild chest pain. Denies orthopnea. Denies PND. Denies palpitations RESPIRATORY: Reports shortness of breath. GASTROINTESTINAL: Denies abdominal pain. Denies nausea or vomiting. HEMATOLOGIC: Denies bleeding disorders. GENITOURINARY: Denies any blood in urine. SKIN: Denies pruitis. Denies rash. PHYSICAL EXAM: VITAL SIGNS: Reviewed. GENERAL: Well-developed in no acute distress. HEENT: Head is normocephalic. Pupils are equal, round. Sclerae anicteric. Mucous membranes of the mouth are moist. Neck supple. No JVD or thyromegaly LUNGS: Respirations even and unlabored. Lungs diminished to auscultation bilaterally. HEART: Regular rate and rhythm. S1 and S2 heard. Systolic murmur noted ABDOMEN: Soft. Nondistended. Nontender. EXTREMITIES: Normal range of motion. No clubbing or cyanosis. Peripheral pulses intact. No lower extremity edema NEUROLOGIC: Lethargic ASSESSMENT: Chest pain Non-STEMI Acute hypoxic respiratory failure requiring BiPAP History of TAVR, 2019, at [facility] History of pacemaker implantation History of seizures History of Parkinson's disease PLAN: Obtain 2D echo to assess cardiac structure and function Continue IV heparin Begin Nitropaste Continue additional cardiac medications Patient to undergo cardiac catheterization today with Dr. Dumont Further recommendations pending patient course Nurse practitioner note has been reviewed by physician. Signing provider agrees with the documented findings, assessment, and plan of care documented by BRAIDER OPERATOR as a scribe. Past Medical History Additional Past Medical History / Comment(s): Parkinsons History of Any Multi-Drug Resistant Organisms: None Reported Past Surgical History: No Surgical Hx Reported Smoking Status: Former smoker Medications and Allergies Home Medications Medication Instructions Recorded Confirmed Type Carbidopa-Levodopa 25-100 mg 3 tab PO QID@08,11,14,17 07/24/19 12/18/24 History [Sinemet 25-100] Multivitamins, Thera [Multivitamin 1 tab PO W/LUNCH 07/24/19 12/18/24 History (formulary)] Tamsulosin [Flomax] 0.4 mg PO BID@0800,1400 07/24/19 12/18/24 History Aspirin EC [Ecotrin] 325 mg PO HS 12/18/24 12/18/24 History Carbidopa-Levodopa ER 50-200Mg 1 tab PO HS 12/18/24 12/18/24 History [Sinemet CR 50-200 mg] Docusate [Colace] 200 mg PO DAILY@1400 12/18/24 12/18/24 History Glycopyrrolate [Robinul] 1 mg PO TID@0800,1100,1400 12/18/24 12/18/24 History Magnesium (Unknown Dose) 1 tab PO DAILY@1700 12/18/24 12/18/24 History Omeprazole 20 mg PO DAILY@0800 12/18/24 12/18/24 History levETIRAcetam [Keppra] 500 mg PO HS 12/18/24 12/18/24 History Allergies Allergy/AdvReac Type Severity Reaction Status Date / Time No Known Allergies Allergy Verified 12/18/24 19:21 Physical Exam Vitals: Vital Signs Temp Pulse Pulse Resp BP BP Pulse Ox 12/19/24 08:01 91 L 12/19/24 08:00 98.6 F 105 H 30 H 104/48 90 L 12/19/24 00:24 22 101/51 94 L 12/19/24 00:22 98.4 F 97 16 87/46 12/18/24 23:23 94 26 H 101/64 90 L 12/18/24 20:54 91 L 12/18/24 20:53 98.0 F 106 H 23 111/74 88 L 12/18/24 19:09 109 H 22 116/62 93 L 12/18/24 17:42 97.6 F 93 20 154/88 12/18/24 17:11 85 21 100/56 12/18/24 16:58 81 12/18/24 16:35 88 20 101/47 91 L FiO2 12/19/24 08:01 70 12/19/24 08:00 12/19/24 00:24 24 12/19/24 00:22 12/18/24 23:23 12/18/24 20:54 12/18/24 20:53 12/18/24 19:09 12/18/24 17:42 12/18/24 17:11 12/18/24 16:58 12/18/24 16:35 Intake and Output 12/18/24 12/19/24 12/19/24 22:59 06:59 14:59 Other: # Voids 2 Weight 81.647 kg Results 12/19/24 04:00 12/19/24 04:00 Cardiac Enzymes 12/18/24 12/18/24 12/19/24 Range/Units 17:45 17:45 04:35 AST 20 (17-59) U/L Troponin I 0.015 7.970 H* (0.000-0.034) ng/mL Coagulation 12/18/24 Range/Units 17:45 PT 11.1 (10.0-12.5) sec APTT 24.4 (22.0-30.0) sec CBC 12/18/24 12/19/24 Range/Units 17:11 04:00 WBC 7.6 19.8 H (3.8-10.6) k/uL RBC 4.22 L 4.50 (4.30-5.90) m/uL Hgb 13.0 13.9 (13.0-17.5) gm/dL Hct 39.9 42.2 (39.0-53.0) % Plt Count 196 224 (150-450) k/uL Comprehensive Metabolic Panel 12/18/24 12/19/24 Range/Units 17:45 04:00 Sodium 136 L 132 L (137-145) mmol/L Potassium 4.2 4.3 (3.5-5.1) mmol/L Chloride 101 100 (98-107) mmol/L Carbon Dioxide 25 22 (22-30) mmol/L BUN 28 H 32 H (9-20) mg/dL Creatinine 0.86 1.02 (0.66-1.25) mg/dL Glucose 122 H 139 H (74-99) mg/dL Calcium 10.1 9.9 (8.4-10.2) mg/dL AST 20 (17-59) U/L ALT 6 (4-49) U/L Alkaline Phosphatase 102 (38-126) U/L Total Protein 7.3 (6.3-8.2) g/dL Albumin 4.2 (3.5-5.0) g/dL Current Medications Generic Name Dose Route Start Last Admin Trade Name Freq PRN Reason Stop Dose Admin Aspirin 81 mg 12/19/24 09:00 12/19/24 08:37 Aspirin 81 Mg PO Not Given DAILY CAROLA Carbidopa/Levodopa 3 each 12/19/24 08:00 12/19/24 08:48 Carbidopa-Levodopa 25-100 Mg 1 Each Tab PO Not Given QID@08,11,14,17 CAROLA Carbidopa/Levodopa 1 each 12/19/24 21:00 Carbidopa-Levodopa Er 50-200mg 1 Each Tablet.Er PO HS CAROLA Heparin Sodium (Porcine) 0 unit 12/19/24 05:27 Heparin Sodium 1,000 Un/Ml (10ml Vl) IV PER PROTOCOL PRN Low PTT Protocol Sodium Chloride 1,000 mls @ 100 mls/hr 12/18/24 22:30 12/19/24 01:47 Saline 0.9% IV 20 mls/hr .Q10H CAROLA Administration Heparin Sodium/Sodium Chloride 250 mls @ 9.798 mls/hr 12/19/24 05:30 12/19/24 05:41 25,000 unit/ Sodium Chloride IV 12 units/kg/hr .Q24H CAROLA 9.798 mls/hr Administration Protocol 12 UNITS/KG/HR Levetiracetam 500 mg 12/19/24 21:00 Levetiracetam 500 Mg Tab PO HS CAROLA Metoprolol Tartrate 12.5 mg 12/19/24 09:00 12/19/24 08:47 Metoprolol Tartrate 12.5 Mg Tab PO 12.5 mg BID CAROLA Administration Nitroglycerin 0.4 mg 12/19/24 05:06 Nitroglycerin Sl Tabs 0.4 Mg Tab SUBLINGUAL Q5M PRN Chest Pain Pantoprazole Sodium 40 mg 12/19/24 07:30 12/19/24 08:47 Pantoprazole 40 Mg Tablet PO 40 mg DAILY@0730 CAROLA Administration Tamsulosin HCl 0.4 mg 12/19/24 08:00 12/19/24 08:48 Tamsulosin 0.4 Mg Cap.Er.24h PO 0.4 mg BID@0800,1400 CAROLA Administration Intake and Output 12/18/24 12/19/24 12/19/24 22:59 06:59 14:59 Other: # Voids 2 Weight 81.647 kg 12/19/24 04:00 12/19/24 04:00
[2024-12-19] MEDS ORDERED: IPRATROPIUM-ALBUTEROL 3 ML NEB INHALATION PRN (16:32)
[2024-12-19] MEDS: methylPREDNISolone SOD SUCCI 125 MG/2 ML VIAL IV SCH (16:50)
[2024-12-19] MEDS: PIPERACILLIN-TAZOBACTAM 3.375 GM in SODIUM CHLORIDE 0.9% 100 ML IVPB SCH (16:51)
[2024-12-19] MEDS: DEXMEDETOMIDINE/0.9% NACL(PMX) 400 MCG in EMPTY BAG 1 BAG IV SCH (16:51)
--- NOTE | 2024-12-19 16:57 | XR ---
EXAMINATION TYPE: XR chest 1V DATE OF EXAM: 12/19/2024 4:45 PM COMPARISON: Chest radiographs from 12/18/2024, CT chest 12/18/2024 TECHNIQUE: XR chest 1V Frontal view of the chest. CLINICAL INDICATION:Male, 84 years old with history of pneumonia; FINDINGS: Lungs/Pleura: No pneumothorax or pleural effusion. Increasing patchy airspace opacities throughout th e left lung and now within the right lung base. Pulmonary vascularity: Unremarkable. Heart/mediastinum: Cardiomediastinal silhouette is enlarged and stable. Two lead cardiac conduction d evice overlying the left hemithorax with lead tips projecting over the right ventricle and right atri um. Musculoskeletal: No acute osseous pathology. Bilateral shoulder arthropathy. IMPRESSION: Worsening multifocal pneumonia. [facility] Kareem Lehman, , 12/19/2024 4:55 PM
--- NOTE | 2024-12-19 17:50 | P.CNPUL ---
History of Present Illness Consult date: 12/19/24 Reason for consult: dyspnea History of present illness: León Laws is a 84-year-old male patient with advanced parkinsonism and chronic dysphagia. The patient also has an extensive cardiac disease. The patient is known to have ascending aortic aneurysm, coronary artery disease with previous coronary stenting and previous history of TAVR that has been performed at [facility]. The patient presented to the hospital because of shortness of breath and chest pain. He had an initial ST segment depression in the lateral leads and subsequent elevation in the troponins. Based on that, the patient was taken for cardiac catheterization. The patient was not found to have any high-grade stenosis in the LAD of the circumflex. There was moderate disease in the RCA and patent stent to the RCA and significant aortic regurgitation, +4. Noted the patient became hypoxic during the process and the patient is currently on a BiPAP at a pressure of 14 over 8 cm of water and FiO2 of 100%. His CT of the chest was done at the time of admission and the patient was found to have left lower lobe pulmonary filtrate in addition to some limited infiltration in the right lower lobe. There is an ascending thoracic aortic aneurysm measuring 4.5 cm in size. The white cell count at 19.8 with a heme of 13.9 and a platelet count of 224. Sodium is at 132, BUN 32 with a creatinine 1.02. Troponin max at 8.9. The viral 4 Plex was negative. Legionella urine antigen was negative. His current cardiac rhythm is sinus. Remains quite shaky and restless and somewhat tachypneic even while being on a BiPAP. Family is at the bedside. His CODE STATUS is DNR/DNI. Review of Systems ROS unobtainable: due to mental status Past Medical History Past Medical History: GERD/Reflux Additional Past Medical History / Comment(s): Parkinsons, previous history of TAVR, coronary artery disease with previous stenting of the RCA, ascending aorti c aneurysm, previous history of pacemaker insertion History of Any Multi-Drug Resistant Organisms: None Reported Past Surgical History: No Surgical Hx Reported Additional Past Surgical History / Comment(s): TAVR at [facility]; dual-chamber pacemaker; penile implant Smoking Status: Former smoker Medications and Allergies Home Medications Medication Instructions Recorded Confirmed Type Carbidopa-Levodopa 25-100 mg 3 tab PO QID@08,11,14,17 07/24/19 12/18/24 History [Sinemet 25-100] Multivitamins, Thera [Multivitamin 1 tab PO W/LUNCH 07/24/19 12/18/24 History (formulary)] Tamsulosin [Flomax] 0.4 mg PO BID@0800,1400 07/24/19 12/18/24 History Aspirin EC [Ecotrin] 325 mg PO HS 12/18/24 12/18/24 History Carbidopa-Levodopa ER 50-200Mg 1 tab PO HS 12/18/24 12/18/24 History [Sinemet CR 50-200 mg] Docusate [Colace] 200 mg PO DAILY@1400 12/18/24 12/18/24 History Glycopyrrolate [Robinul] 1 mg PO TID@0800,1100,1400 12/18/24 12/18/24 History Magnesium (Unknown Dose) 1 tab PO DAILY@1700 12/18/24 12/18/24 History Omeprazole 20 mg PO DAILY@0800 12/18/24 12/18/24 History levETIRAcetam [Keppra] 500 mg PO HS 12/18/24 12/18/24 History Allergies Allergy/AdvReac Type Severity Reaction Status Date / Time No Known Allergies Allergy Verified 12/18/24 19:21 Physical Exam Vitals: Vital Signs Temp Pulse Pulse Pulse Resp BP BP 12/19/24 16:00 96 36 H 120/54 12/19/24 15:30 97 36 H 103/55 12/19/24 15:24 12/19/24 15:00 98.6 F 96 32 H 101/62 12/19/24 14:52 92 37 H 12/19/24 13:48 102 H 28 H 118/53 12/19/24 13:33 103 H 30 H 116/58 12/19/24 13:18 106 H 30 H 108/56 12/19/24 13:03 30 H 111/58 12/19/24 11:46 12/19/24 09:52 12/19/24 09:39 12/19/24 08:01 12/19/24 08:00 98.6 F 105 H 30 H 104/48 12/19/24 00:24 22 101/51 12/19/24 00:22 98.4 F 97 16 87/46 12/18/24 23:23 94 26 H 101/64 12/18/24 20:54 12/18/24 20:53 98.0 F 106 H 23 111/74 12/18/24 19:09 109 H 22 116/62 12/18/24 17:42 97.6 F 93 20 154/88 Pulse Ox FiO2 12/19/24 16:00 87 L 12/19/24 15:30 89 L 12/19/24 15:24 100 12/19/24 15:00 89 L 100 12/19/24 14:52 12/19/24 13:48 89 L 100 12/19/24 13:33 90 L 12/19/24 13:18 89 L 12/19/24 13:03 87 L 100 12/19/24 11:46 100 12/19/24 09:52 100 12/19/24 09:39 100 12/19/24 08:01 91 L 70 12/19/24 08:00 90 L 12/19/24 00:24 94 L 24 12/19/24 00:22 12/18/24 23:23 90 L 12/18/24 20:54 91 L 12/18/24 20:53 88 L 12/18/24 19:09 93 L 12/18/24 17:42 Intake and Output 12/19/24 12/19/24 12/19/24 06:59 14:59 22:59 Intake Total 248.827 Output Total 1 Balance 247.827 Intake: IV 200 Intake, IV Titration 48.827 Amount Heparin Sod,Pork in 0.45% 48.827 NaCl 25,000 unit In 0.45 % NaCl 1 250ml.bag @ 12 UNITS/KG/HR 9.798 mls/hr IV .Q24H [facility] Rx#: [id number] Output: Urine 1 Other: # Voids 2 The patient appeared to be having labored breathing. Currently on a BiPAP at a pressure of 14/8 with an FiO2 of 100%. He is quite restless. He does have ongoing tremors. Unable to carry a conversation. Head exam is unremarkable. No scleral icterus or corneal arcus noted. Neck is without jugular venous distension, thyromegaly, or carotid bruits. Carotid upstrokes are brisk bilaterally. The mucous membranes are essentially dry and the patient is wearing a fullface BiPAP mask. Lungs a are showing diminished breath sounds bilaterally. Cardiac exam reveals the PMI to be normally sized and situated. Rhythm is re gular. First and second heart sounds normal. No murmurs, rubs or gallops. Abdominal exam reveals normal bowel sounds, no masses, no organomegaly and no aortic enlargement. Extremities are nonedematous and both femoral and pedal pulses are normal. Examination of the skin revealed no evidence of significant rashes, suspicious appearing nevi or other concerning lesions. Neurologically, the patient is lethargic, moving all 4 extremities. There is neuromuscular weakness and ongoing tremors. He is able to move all 4 extremities. No limitation. Pupils are equal reactive to light. Results - Laboratory Findings CBC and BMP: 12/19/24 04:00 12/19/24 04:00 PT/INR, D-dimer PT 12.0 sec (10.0-12.5) 12/19/24 10:18 INR 1.1 (<1.2) 12/19/24 10:18 Abnormal lab findings: Abnormal Labs 12/18/24 12/18/24 12/19/24 17:11 17:45 04:00 WBC 19.8 H RBC 4.22 L Neutrophils # 17.6 H Monocytes # 1.1 H APTT Sodium 136 L BUN 28 H Glucose 122 H Troponin I 12/19/24 12/19/24 12/19/24 04:00 04:35 10:18 WBC RBC Neutrophils # Monocytes # APTT 53.3 H Sodium 132 L BUN 32 H Glucose 139 H Troponin I 7.970 H* 12/19/24 10:18 WBC RBC Neutrophils # Monocytes # APTT Sodium BUN Glucose Troponin I 8.960 H* - Diagnostic Findings Chest x-ray: image reviewed CT scan - chest: image reviewed Assessment and Plan Plan: Acute hypoxic respiratory failure, currently on a BiPAP pressure of 14/8 with an FiO2 of 100%. The patient has bilateral pneumonia left more than right in addition to a component of pulm edema as noted on follow-up chest x-ray. Pneumonia, bilateral, worse in the left lower lobe and limited infiltration of the right lung base. Pulmonary filtration was confirmed on a CT of the chest into the time of admission. Rule out aspiration pneumonia with his history of Parkinson disease and chronic dysphagia. The patient's family admits that the patient has been having chronic difficulties with swallowing. Acute non-ST segment elevation myocardial infarction. Cardiac catheterization was completed and the patient was found to have Patent stent to RCA. The patient also had no evidence of high-grade stenosis involving the LAD or the circumflex. The troponin peaked 8.9 Aortic regurgitation, severe, plus for History of TAVR History of pacemaker insertion, Acute leukocytosis, likely related to pneumonia Advanced Parkinson disease Hyperlipidemia Plan The patient is currently admitted to the intensive care unit Continue BiPAP for respiratory support, essentially same settings of 14/8 with an FiO2 of 100% Obtain a blood gas Will utilize Precedex to maintain synchrony with the BiPAP machine. Noted the patient is a DNR/DNI CODE STATUS and the family made it clear that he does not want intubation and mechanical ventilation. Will cover the patient with IV Zosyn covering for aspiration pneumonia DuoNeb the regiment [id number] IV Solu-Medrol Continue IV Lasix 40 mg every 12 hours. Echocardiogram to evaluate aortic valve and LV function Cardiology on the case Continue IV heparin Check proBNP Check procalcitonin Monitor hemodynamics Continue aspirin and metoprolol in addition to his home medications once the patient is able to swallow. Condition is critical for now. Will continue to follow and make further recommendations based on his progress. Evaluation was done and 35 minutes. Discussed the case with the family at the bedside. Time with Patient: Greater than 30
[2024-12-19 18:21] LABS: African American GFR (CKD) 66 (>60 ml/min/1.73 sqM); Anion Gap 10 mmol/L; Blood Urea Nitrogen 40 mg/dL (9-20); Calcium 9.9 mg/dL (8.4-10.2); Carbon Dioxide 18 mmol/L (22-30); Chloride 102 mmol/L (98-107); Glucose 160 mg/dL (74-99); Non-African American GFR(CKD) 57 (>60 ml/min/1.73 sqM); Potassium 5.2 mmol/L (3.5-5.1); Sodium 130 mmol/L (137-145)
[2024-12-19] MEDS: ATORVASTATIN 80 MG TAB PO STA (18:46)
[2024-12-19] MEDS: NITROGLYCERIN OINT 1 INCH/GM PACKET TOPICAL SCH (18:47)
[2024-12-19 19:02] LABS: NT-Pro-B-Type Natriuretic Pept 7710 pg/mL
[2024-12-19] MEDS: CLOPIDOGREL 75 MG TAB PO SCH (19:34)
[2024-12-19 19:48] LABS: ABG Base Excess -3.5 mmol/L; ABG HCO3 19 mmol/L (21-25); ABG Oxygen Saturation 96.1 % (94-97); ABG PCO2 29 mmHg (35-45); ABG PH 7.43 (7.35-7.45); ABG PO2 88 mmHg (83-108); ABG TCO2 20 mmol/L (19-24); Allen Test Performed? Yes
[2024-12-19] MEDS ORDERED: levETIRAcetam 500 MG TAB PO SCH (21:00)
[2024-12-19] MEDS: FUROSEMIDE 10 MG/ML 4 ML VIAL IV SCH (21:15)
[2024-12-19] MEDS: levETIRAcetam IV 500 MG/5 ML VIAL IVP SCH (21:15)
[2024-12-19] MEDS: METOPROLOL TARTRATE 25 MG TAB PO SCH (21:16)
[2024-12-19] MEDS: CARBIDOPA-LEVODOPA ER 50-200MG 1 EACH TABLET.ER PO SCH (21:16)
[2024-12-19] MEDS: ATORVASTATIN 80 MG TAB PO SCH (21:16)
[2024-12-19 23:59] LABS: Glucose,Whole Blood 188 mg/dL (70-110)
[2024-12-20] MEDS ORDERED: DEXTROSE 50% SYRINGE 50 ML IVP PRN ×2 (00:02)
[2024-12-20] MEDS: INSULIN ASPART (NovoLOG) 100 UNIT/ML VIAL SQ SCH (00:49)
[2024-12-20 06:34] LABS: Prothrombin Time 11.4 sec (10.0-12.5)
[2024-12-20 06:51] LABS: ALT 11 U/L (4-49); AST 87 U/L (17-59); African American GFR (CKD) 35 (>60 ml/min/1.73 sqM); Albumin 3.3 g/dL (3.5-5.0); Alkaline Phosphatase 80 U/L (38-126); Anion Gap 16 mmol/L; Blood Urea Nitrogen 57 mg/dL (9-20); Calcium 10.1 mg/dL (8.4-10.2); Carbon Dioxide 14 mmol/L (22-30); Chloride 103 mmol/L (98-107); Glucose 158 mg/dL (74-99); Magnesium 2.5 mg/dL (1.6-2.3); Non-African American GFR(CKD) 30 (>60 ml/min/1.73 sqM); Potassium 5.5 mmol/L (3.5-5.1); Sodium 133 mmol/L (137-145); Total Bilirubin 1.3 mg/dL (0.2-1.3); Total Protein 6.3 g/dL (6.3-8.2)
[2024-12-20 06:57] LABS: Glucose,Whole Blood 148 mg/dL (70-110)
--- NOTE | 2024-12-20 07:19 | CA ---
Transthoracic Echo Report Name: Gordon Goodwin Age: 84 Gender: M : 1940 Exam Date: 12/19/2024 10:21 Exam Location: [facility] Ht (in): 70 Wt (lb): 180 Ordering Physician: Pooja Lassiter Attending/Referring Phys: [id number], [employer] Specialist Kimberly Pinto RDCS Procedure CPT: Indications: LV function, NSTEMI, hx AVR Cardiac Hx: Technical Quality: Very technically difficult study Contrast 1: Definity Total Dose (mL): 3 Contrast 2: Total Dose (mL): MEASUREMENTS (Male / Female) Normal Values 2D ECHO LV Diastolic Diameter PLAX 4.9 cm 4.2 - 5.9 / 3.9 - 5.3 cm LV Systolic Diameter PLAX 3.4 cm IVS Diastolic Thickness 0.6 cm 0.6 - 1.0 / 0.6 - 0.9 cm LVPW Diastolic Thickness 0.6 cm 0.6 - 1.0 / 0.6 - 0.9 cm LV Relative Wall Thickness 0.3 LVOT Diameter 2.2 cm DOPPLER AV Peak Velocity 121.0 cm/s AV Peak Gradient 5.9 mmHg AV Mean Velocity 78.8 cm/s AV Mean Gradient 2.9 mmHg AV Velocity Time Integral 19.8 cm LVOT Peak Velocity 102.9 cm/s LVOT Peak Gradient 4.2 mmHg LVOT Velocity Time Integral 16.1 cm LVOT Stroke Volume 59.0 cm??? LVOT Stroke Volume Index 29.6 ml/m??? LVOT Cardiac Index 3245.4 cm???/min???m??? AV Area Cont Eq vti 3.0 cm??? AV Area Cont Eq pk 3.1 cm??? TR Peak Velocity 248.0 cm/s TR Peak Gradient 24.6 mmHg Right Atrial Pressure 10.0 mmHg Pulmonary Artery Systolic Pressu 34.6 mmHg Right Ventricular Systolic Press 34.6 mmHg FINDINGS Left Ventricle Left ventricular ejection fraction is estimated at 40 %. Left ventricle not well visualized. Left ventricular wall thickness normal. Right Ventricle Right ventricle not well visualized. Normal right ventricular free wall motion. Borderline elevated right ventricular systolic pressure. Right Atrium Catheter/pacemaker wire in the right atrial cavity. Right atrium not well visualized. Left Atrium Left atrium not well visualized. Mitral Valve Mitral valve thickened. Mitral annular calcification. No evidence for mitral valve prolapse. No mitral stenosis. Trace mitral regurgitation. Aortic Valve Bioprosthetic aortic valve without stenosis. Tricuspid Valve Structurally normal tricuspid valve. No tricuspid stenosis. Mild tricuspid regurgitation. Pulmonic Valve Pulmonic valve not well visualized. Pericardium Small pericardial effusion. Aorta Aortic root and proximal ascending aorta not well visualized. CONCLUSIONS Extremely difficult study for interpretation with poorly visualized endocardium and intracardiac valves Overall normal LV systolic function Bioprosthetic aortic valve was noted but was poorly visualized.. AI was noted but was difficult to quantify. Acceptable gradient across the aortic valve Mitral annular calcification. Again the mitral valve was poorly visualized Small pericardial effusion Previewed by: Dr. Donny Hernandez MD (Electronically Signed) Final Date: 20 December 2024 07:18
[2024-12-20] MEDS ORDERED: INSULIN ASPART (NovoLOG) 100 UNIT/ML VIAL SQ SCH (07:30)
[2024-12-20 07:44] LABS: Basophils % (A) 0 %; Eosinophils % (A) 0 %; HCT 46.9 % (39.0-53.0); HGB 15.3 gm/dL (13.0-17.5); Lymphocytes # (A) 0.9 k/uL (1.0-4.8); Lymphocytes % (A) 5 %; MCHC 32.7 g/dL (31.0-37.0); MCV 94.8 fL (80.0-100.0); Mean Platelet Volume 9.6; Monocytes # (A) 0.5 k/uL (0-1.0); Monocytes % (A) 3 %; Neutrophils # (A) 14.9 k/uL (1.3-7.7); Neutrophils % (A) 91 %; Platelet Count 140 k/uL (150-450); RBC 4.94 m/uL (4.30-5.90); WBC 16.3 k/uL (3.8-10.6)
--- NOTE | 2024-12-20 08:24 | XR ---
EXAMINATION TYPE: XR chest 1V portable DATE OF EXAM: 12/20/2024 5:30 AM COMPARISON: Chest radiographs from 12/19/2024 TECHNIQUE: XR chest 1V portable Portable AP radiograph of the chest. CLINICAL INDICATION:Male, 84 years old with history of f/u bilateral airspace disease; FINDINGS: Lungs/Pleura: No pneumothorax. Similarpatchy airspace opacities throughout the left lung and the righ t lung base. Possible trace left pleural effusion. Pulmonary vascularity: Unremarkable. Heart/mediastinum: Cardiomediastinal silhouette is enlarged and stable. Atherosclerotic calcificatio ns are seen in the aorta. Two lead cardiac conduction device overlying the left hemithorax with lead tips projecting over the right ventricle and right atrium. Musculoskeletal: No acute osseous pathology. Bilateral shoulder arthropathy. IMPRESSION: Similar multifocal pneumonia with possible trace left pleural effusion. [facility], , 12/20/2024 8:22 AM
--- NOTE | 2024-12-20 09:01 | P.PN ---
Subjective Progress Note Date: 12/20/24 PROGRESS NOTE The patient is an 84-year-old male, status post TAVR, permanent pacemaker implantation and stenting of the right coronary artery who presented with symptoms of progressive dyspnea and episode of chest discomfort. He had troponin elevation. His chest x-ray was consistent with bilateral pneumonia. He underwent cardiac catheterization that showed no evidence of high-grade stenosis. He had evidence of significant aortic regurgitation on the cardiac catheterization. His echocardiogram was difficult and no clear quantification of the aortic regurgitation could be made. There was no evidence of significant aortic stenosis. He is more obtunded today, on the BiPAP, not responsive to ve rbal stimulation. His chest x-ray shows worsening of his infiltrate. He continues to be in sinus mechanism with episodes of pacemaker activity. He is on no vasopressors. Medications: Aspirin, Lipitor 80 mg daily, Sinemet, Plavix 75 mg daily, Nitropaste 1 inch every 6 hours, metoprolol 25 mg twice a day, Keppra PHYSICAL EXAMINATION: Blood pressure 107/61heart rate 67, obtunded not following commands on BiPAP LUNGS: Clear to auscultation anteriorly HEART: Regular rate and rhythm, S1, S2. No S3. Systolic ejection murmur ABDOMEN: Soft, nontender, no organomegaly EXTREMETIES: No edema, right groin no hematoma LAB: Hemoglobin 15.3, potassium 5.5, BUN 57, creatinine 1.97 IMPRESSION: 1. Bilateral pneumonia with possible aspiration pneumonia 2. Non-STEMI with no evidence of high-grade stenosis 3. Status post TAVR with significant aortic regurgitation by coronary angiography 4. Acute renal injury 5. Hypoxemia 6. Decreased mentation related to the infection 7. Prior history of CAD 8. Status post permanent pacemaker implantation PLAN: 1. Stop nitrate 2. The patient may require intubation if the family is in agreement in view of his progressive deterioration 3. Prognosis is poor 4. Depending on his progress further recommendations will be made Objective - Vital Signs Vital signs: Vital Signs Temp 98.7 F 12/20/24 04:00 Pulse 67 12/20/24 07:00 Resp 27 H 12/20/24 07:00 BP 89/53 12/20/24 07:00 Pulse Ox 87 L 12/20/24 07:00 FiO2 100 12/20/24 06:00 Intake & Output 12/19/24 12/20/24 12/20/24 18:59 06:59 18:59 Intake Total 509.645 184.333 10 Output Total 61 355 20 Balance 448.645 -170.667 -10 Weight 70.2 kg Intake: IV 350 120 10 Sodium Chloride 0.9% 1, 150 120 10 000 ml @ 75 mls/hr IV . [id number] [facility] Rx#:[id number] Intake, IV Titration 159.645 64.333 Amount Dexmedetomidine/0.9% NaCl 10.818 64.333 (Pmx) 400 mcg In Empty Bag 1 bag @ 0.2 MCG/KG/HR 4.082 mls/hr IV .Q24H [facility] Rx#:[id number] Heparin Sod,Pork in 0.45% 48.827 NaCl 25,000 unit In 0.45 % NaCl 1 250ml.bag @ 12 UNITS/KG/HR 9.798 mls/hr IV .Q24H [facility] Rx#: [id number] Piperacillin-Tazobactam 3 100 .375 gm In Sodium Chloride 0.9% 100 ml @ 25 mls/hr IVPB Q8HR [facility] Rx# :[id number] Output: Urine 61 355 20 Other: Voiding Method Indwelling Catheter - Labs CBC & Chem 7: 12/20/24 05:50 12/20/24 05:50 Labs: Abnormal Lab Results - Last 24 Hours (Table) 12/19/24 12/19/24 12/19/24 Range/Units 10:18 10:18 17:50 WBC (3.8-10.6) k/uL Plt Count (150-450) k/uL Neutrophils # (1.3-7.7) k/uL Lymphocytes # (1.0-4.8) k/uL APTT 53.3 H (22.0-30.0) sec ABG pCO2 (35-45) mmHg ABG HCO3 (21-25) mmol/L Sodium 130 L (137-145) mmol/L Potassium 5.2 H (3.5-5.1) mmol/L Carbon Dioxide 18 L (22-30) mmol/L BUN 40 H (9-20) mg/dL Creatinine (0.66-1.25) mg/dL Glucose 160 H (74-99) mg/dL POC Glucose (mg/dL) (70-110) mg/dL Magnesium (1.6-2.3) mg/dL AST (17-59) U/L Troponin I 8.960 H* (0.000-0.034) ng/mL Albumin (3.5-5.0) g/dL 12/19/24 12/19/24 12/20/24 Range/Units 19:36 23:57 05:50 WBC 16.3 H (3.8-10.6) k/uL Plt Count 140 L (150-450) k/uL Neutrophils # 14.9 H (1.3-7.7) k/uL Lymphocytes # 0.9 L (1.0-4.8) k/uL APTT (22.0-30.0) sec ABG pCO2 29 L (35-45) mmHg ABG HCO3 19 L (21-25) mmol/L Sodium (137-145) mmol/L Potassium (3.5-5.1) mmol/L Carbon Dioxide (22-30) mmol/L BUN (9-20) mg/dL Creatinine (0.66-1.25) mg/dL Glucose (74-99) mg/dL POC Glucose (mg/dL) 188 H (70-110) mg/dL Magnesium (1.6-2.3) mg/dL AST (17-59) U/L Troponin I (0.000-0.034) ng/mL Albumin (3.5-5.0) g/dL 12/20/24 12/20/24 Range/Units 05:50 06:56 WBC (3.8-10.6) k/uL Plt Count (150-450) k/uL Neutrophils # (1.3-7.7) k/uL Lymphocytes # (1.0-4.8) k/uL APTT (22.0-30.0) sec ABG pCO2 (35-45) mmHg ABG HCO3 (21-25) mmol/L Sodium 133 L (137-145) mmol/L Potassium 5.5 H (3.5-5.1) mmol/L Carbon Dioxide 14 L (22-30) mmol/L BUN 57 H (9-20) mg/dL Creatinine 1.97 H (0.66-1.25) mg/dL Glucose 158 H (74-99) mg/dL POC Glucose (mg/dL) 148 H (70-110) mg/dL Magnesium 2.5 H (1.6-2.3) mg/dL AST 87 H (17-59) U/L Troponin I (0.000-0.034) ng/mL Albumin 3.3 L (3.5-5.0) g/dL
[2024-12-20] MEDS: DEXTROSE 5% IN WATER 1,000 ML with SODIUM BICARB (1 MEQ/ML) 150 ML IV SCH (09:13)
[2024-12-20 09:56] VITALS: TEMP 99.1
[2024-12-20] MEDS ORDERED: MORPHINE SULFATE 2 MG/ML SYRINGE IV PRN (12:35)
[2024-12-20] MEDS: MORPHINE SULFATE 4 MG/ML SYRINGE IV PRN (14:17)
[2024-12-20] MEDS: SCOPOLAMINE 1 MG/72 HR PATCH TRANSDERM SCH (14:18)
[2024-12-20] MEDS: MORPHINE SULFATE 100 MG in SODIUM CHLORIDE 0.9% 90 ML IV SCH (15:06)
[2024-12-20] MEDS: ATROPINE OPHTH SOLN 1% 5ML BTL SUBLINGUAL PRN (15:07)
--- NOTE | 2024-12-20 16:45 | P.PN ---
Subjective Progress Note Date: 12/20/24 For Veto is a 84-year-old male patient with advanced parkinsonism and chronic dysphagia. The patient also has an extensive cardiac disease. The patient is known to have ascending aortic aneurysm, coronary artery disease with previous coronary stenting and previous history of TAVR that has been performed at [facility]. The patient presented to the hospital because of shortness of breath and chest pain. He had an initial ST segment depression in the lateral leads and subsequent elevation in the troponins. Based on that, the patient was taken for cardiac catheterization. The patient was not found to have any high-grade stenosis in the LAD of the circumflex. There was moderate disease in the RCA and patent stent to the RCA and significant aortic regurgitation, +4. Noted the patient became hypoxic during the process and the patient is currently on a BiPAP at a pressure of 14 over 8 cm of water and FiO2 of 100%. His CT of the chest was done at the time of admission and the patient was found to have left lower lobe pulmonary filtrate in addition to some limited infiltration in the right lower lobe. There is an ascending thoracic aortic aneurysm measuring 4.5 cm in size. The white cell count at 19.8 with a heme of 13.9 and a platelet count of 224. Sodium is at 132, BUN 32 with a creatinine 1.02. Troponin max at 8.9. The viral 4 Plex was negative. Legionella urine antigen was negative. His current cardiac rhythm is sinus. Remains quite shaky and restless and somewhat tachypneic even while being on a BiPAP. Family is at the bedside. His CODE STATUS is DNR/DNI. On 12/20/2024, the patient is being seen for a follow-up. His condition has further decompensated over the past 24 hours. Noted the patient presented to the ICU with acute hypoxic respiratory failure following a cardiac catheterization. The patient had bilateral pneumonia and the follow-up chest x- ray from today shows interval worsening consolidations specially the infiltrate on the left. For now, the patient has multifocal pneumonia with a trace left- sided pleural effusion. He is still maintained on a BiPAP at a pressure of 15 over 10 cm of water with an FiO2 of 100%. He is able to generate adequate tidal volumes above 800. His respiratory rate is 26 and he has a high minute ventilation. He remains quite hypoxic and pulse ox is around 90%. The patient remains on Precedex which is running at 0.3 mcg/kg/min. He is on a bicarb infusion at a rate of 75 cc an hour. Urine output is quite diminished at 5 cc an hour. He is essentially unresponsive. Breathing seems to be labored even while being on a BiPAP. The white cell count is 16.3 with a hemoglobin of 15.3 and a platelet count of 140. Sodium levels at 133, bicarb levels at 14, BUN is 57 with a creatinine of 1.97 and the patient has sustained an acute kidney injury. Serum lactic acid level is at 3.9. As mentioned, troponin peaked at 8.9 and the patient's procalcitonin level is at 0.09. Antibiotic coverage includes a combination of Zosyn and vancomycin. Remains on Lasix 40 mg IV every 12 hours. Urine output is quite diminished and the patient's fluid balance has been positive to 77 cc over the past 24 hours. Family is at the bedside. Objective - Vital Signs Vital signs: Vital Signs Temp 99.1 F 12/20/24 08:00 Pulse 71 12/20/24 15:00 Resp 19 12/20/24 15:00 BP 82/46 12/20/24 15:00 Pulse Ox 88 L 12/20/24 15:00 FiO2 100 12/20/24 13:10 Intake & Output 12/19/24 12/20/24 12/20/24 18:59 06:59 18:59 Intake Total 509.645 184.333 921.912 Output Total 61 355 60 Balance 448.645 -170.667 861.912 Weight 70.2 kg Intake: IV 350 120 870 Dextrose 5% in Water 1, 750 000 ml @ 150 mls/hr IV . [id number] [place] with Sodium Bicarb (1 Meq/ml) 150 ml Rx#:[id number] Piperacillin-Tazobactam 3 100 .375 gm In Sodium Chloride 0.9% 100 ml @ 25 mls/hr IVPB Q8HR [place] Rx# :[id number] Sodium Chloride 0.9% 1, 150 120 20 000 ml @ 75 mls/hr IV . [id number] [facility] Rx#:[id number] Intake, IV Titration 159.645 64.333 51.912 Amount Dexmedetomidine/0.9% NaCl 10.818 64.333 51.712 (Pmx) 400 mcg In Empty Bag 1 bag @ 0.2 MCG/KG/HR 4.082 mls/hr IV .Q24H [facility] Rx#:[id number] Heparin Sod,Pork in 0.45% 48.827 NaCl 25,000 unit In 0.45 % NaCl 1 250ml.bag @ 12 UNITS/KG/HR 9.798 mls/hr IV .Q24H [facility] Rx#: [id number] Morphine Sulfate 100 mg 0.200 In Sodium Chloride 0.9% 90 ml @ 1 MG/HR 1 mls/hr IV .Q24H [place] Rx#: [id number] Piperacillin-Tazobactam 3 100 .375 gm In Sodium Chloride 0.9% 100 ml @ 25 mls/hr IVPB Q8HR [facility] Rx# :[id number] Output: Urine 61 355 60 Other: Voiding Method Indwelling Catheter Indwelling Catheter - Exam The patient appeared to be having labored breathing. Currently on a BiPAP at a pressure of 15/10 with an FiO2 of 100%. He does have ongoing tremors. Unable to carry a conversation. Breathing is still labored and the patient remains on Precedex. Head exam is unremarkable. No scleral icterus or corneal arcus noted. Neck is without jugular venous distension, thyromegaly, or carotid bruits. Carotid upstrokes are brisk bilaterally. The mucous membranes are essentially dry and the patient is wearing a fullface BiPAP mask. Lungs a are showing diminished breath sounds bilaterally. Cardiac exam reveals the PMI to be normally sized and situated. Rhythm is regular. First and second heart sounds normal. No murmurs, rubs or gallops. Abdominal exam reveals normal bowel sounds, no masses, no organomegaly and no aortic enlargement. Extremities are nonedematous and both femoral and pedal pulses are normal. Examination of the skin revealed no evidence of significant rashes, suspicious appearing nevi or other concerning lesions. Neurologically, the patient is unresponsive on today's evaluation - Labs CBC & Chem 7: 12/20/24 05:50 12/20/24 05:50 Labs: Abnormal Lab Results - Last 24 Hours (Table) 12/19/24 12/19/24 12/19/24 Range/Units 17:50 19:36 23:57 WBC (3.8-10.6) k/uL Plt Count (150-450) k/uL Neutrophils # (1.3-7.7) k/uL Lymphocytes # (1.0-4.8) k/uL ABG pCO2 29 L (35-45) mmHg ABG HCO3 19 L (21-25) mmol/L Sodium 130 L (137-145) mmol/L Potassium 5.2 H (3.5-5.1) mmol/L Carbon Dioxide 18 L (22-30) mmol/L BUN 40 H (9-20) mg/dL Creatinine (0.66-1.25) mg/dL Glucose 160 H (74-99) mg/dL POC Glucose (mg/dL) 188 H (70-110) mg/dL Plasma Lactic Acid German (0.7-2.0) mmol/L Magnesium (1.6-2.3) mg/dL AST (17-59) U/L Albumin (3.5-5.0) g/dL 12/20/24 12/20/24 12/20/24 Range/Units 05:50 05:50 06:56 WBC 16.3 H (3.8-10.6) k/uL Plt Count 140 L (150-450) k/uL Neutrophils # 14.9 H (1.3-7.7) k/uL Lymphocytes # 0.9 L (1.0-4.8) k/uL ABG pCO2 (35-45) mmHg ABG HCO3 (21-25) mmol/L Sodium 133 L (137-145) mmol/L Potassium 5.5 H (3.5-5.1) mmol/L Carbon Dioxide 14 L (22-30) mmol/L BUN 57 H (9-20) mg/dL Creatinine 1.97 H (0.66-1.25) mg/dL Glucose 158 H (74-99) mg/dL POC Glucose (mg/dL) 148 H (70-110) mg/dL Plasma Lactic Acid German (0.7-2.0) mmol/L Magnesium 2.5 H (1.6-2.3) mg/dL AST 87 H (17-59) U/L Albumin 3.3 L (3.5-5.0) g/dL 12/20/24 Range/Units 11:21 WBC (3.8-10.6) k/uL Plt Count (150-450) k/uL Neutrophils # (1.3-7.7) k/uL Lymphocytes # (1.0-4.8) k/uL ABG pCO2 (35-45) mmHg ABG HCO3 (21-25) mmol/L Sodium (137-145) mmol/L Potassium (3.5-5.1) mmol/L Carbon Dioxide (22-30) mmol/L BUN (9-20) mg/dL Creatinine (0.66-1.25) mg/dL Glucose (74-99) mg/dL POC Glucose (mg/dL) (70-110) mg/dL Plasma Lactic Acid German 3.9 H* (0.7-2.0) mmol/L Magnesium (1.6-2.3) mg/dL AST (17-59) U/L Albumin (3.5-5.0) g/dL Microbiology - Last 24 Hours (Table) 12/19/24 04:00 Blood Culture - Preliminary Blood 12/19/24 04:00 Blood Culture - Preliminary Blood Assessment and Plan Plan: Acute hypoxic respiratory failure, currently on a BiPAP pressure of 15/10 with an FiO2 of 100%. The patient has bilateral pneumonia left more than right in addition to a component of pulm edema. There has been interval worsening in the bilateral lung consolidation pneumonias and today's chest x-ray. The patient has become less responsive, breathing remains labored with a high minute ventilation. The patient remains hypoxic and above-mentioned BiPAP settings. Remains on IV Zosyn. Pneumonia, bilateral, worse in the left lower lobe and limited infiltration of the right lung base. Pulmonary filtration was confirmed on a CT of the chest into the time of admission. Rule out aspiration pneumonia with his history of Parkinson disease and chronic dysphagia. The patient's family admits that the patient has been having chronic difficulties with swallowing. Interval worsening of the bilateral lung consolidation on today's chest x-ray Acute non-ST segment elevation myocardial infarction. Cardiac catheterization was completed and the patient was found to have Patent stent to RCA. The patient also had no evidence of high-grade stenosis involving the LAD or the circumflex. The troponin peaked 8.9 Aortic regurgitation, severe, plus 4. Echocardiogram was done and the patient has aortic insufficiency. Preserved LV function. Acute kidney injury secondary to above, the patient is oliguric. Mild lactic acidosis History of TAVR History of pacemaker insertion, Acute leukocytosis, likely related to pneumonia Advanced Parkinson disease Hyperlipidemia Plan Prognosis remains essentially poor. This has been discussed with the family at the bedside. Continue BiPAP for respiratory support, essentially same settings of 15/10 with an FiO2 of 100% Will utilize Precedex to maintain synchrony with the BiPAP machine. Confirmed the DNR/DNI CODE STATUS and the family made it clear that he does not want intubation and mechanical ventilation. Will cover the patient with IV Zosyn covering for aspiration pneumonia [facility]elli [id number] Cardiology on the case Discussed the case with cardiology. Discussed the case with the family. His baseline neurologic functions have been significantly impaired and the patient had a very poor baseline performance and functional status. Based on ongoing events and respiratory decompensation, family opted for end-of-life/hospice car e. I think is quite reasonable. Cardiology was agreeable. Will consult hospice. Will provide end-of-life care. This will likely end in a mortality. Critical care evaluation, 35 minutes. Time with Patient: Greater than 30
[2024-12-20 16:58] VITALS: BP 94/48; PULSE 60; RESP 0
--- NOTE | 2024-12-20 17:12 | P.DS ---
Providers Date of admission: 12/19/24 09:55 Expected date of discharge: 12/20/24 Attending physician: Lizbeth Vance MD Consults: 12/19/24 05:07 Consult Physician Routine Consulting Provider: Byron Hardy Consult Reason/Comments: NSTEMI Do you want consulting provider notified?: Yes 12/19/24 08:48 Consult Physician Urgent Consulting Provider: Kraig Lawson Consult Reason/Comments: ascending thoracic AA Do you want consulting provider notified?: Yes 12/19/24 12:33 Consult Physician Routine Consulting Provider: Tatyana Anthony Consult Reason/Comments: dyspnea Do you want consulting provider notified?: Yes Primary care physician: [facility] Course: note: 84-year-old male with history of aortic valve replacement in 2019, Parkinson's, GERD, erectile dysfunction, with a history of dysphagia here for chest pain via EMS. Chest x-ray showed left lower lobe infiltrate to correlate for atelectasis, pneumonia, or pulmonary edema. CT angiography of the chest showed no acute pulmonary embolism, left lower lobe infiltrate with mild the right lower lobe infiltrate to correlate for pneumonia or atelectasis. Ascending thoracic aortic aneurysm 4.5 cm. EKG showed sinus rhythm with a rate of 84, ST depressions noted on lead II, V3-V6, QTc 400, left axis deviation. Labs on admission showed WBC 7.6, hemoglobin 13, platelet count 1 96,000, PT 11, INR 1, PTT 24.4, sodium 136, potassium 4.2, chloride 101, bicarb 25, BUN 28, creatinine 0.86, glucose 122, calcium 10.1, magnesium 2.1, troponin 0.015, BNP 64, albumin 4.2. Liver enzymes unremarkable. Cepheid 4 negative. On admission, temperature 98, pulse rate 109, respiratory rate 22, blood pressure 116/62, O2 saturation 93% on 2 L nasal cannula. Patient was started on IV antibiotics. Initial troponin was 0.015 which increased to 7.97 and 8.960. Repeat EKG shows minimal ST elevations and anterior leads, inferior and lateral ST depressions now resolved. Patient currently on heparin drip. Cardiology consulted, underwent cardiac cath showing 40-50% of the RCA with 20 mm gradient across the aortic valve. Respiratory status worsening, patient placed on BiPAP. 12/20 On BiPAP 15/10 FiO2 100% saturating low 90s. CBC and CMP significant for WBC 16.3, Plt 140, Na 133, K 5.5, bicarb 14, BUN 57, Cr 1.97, glu 158, AST 87. Lactic acid 3.9. Family decided on hospice. Patient was placed on comfort measures. He peacefully at 4:07PM prior to being seen. Diagnosis: Acute NSTEMI Acute hypoxic respiratory failure, secondary to above versus aspiration pneumonia Sepsis likely due to aspiration PNA Hyperkalemia with PABLO Thoracic and abdominal aortic aneurysm Parkinson's disease Seizure disorder BPH History of aortic valve replacement GERD Patient Condition at Discharge: Undetermined Plan - Discharge Summary Discharge Rx Participant: No New Discharge Prescriptions: No Action Carbidopa-Levodopa 25-100 mg [Sinemet 25-100] 3 tab PO QID@08,,, Tamsulosin [Flomax] 0.4 mg PO BID@0800,1400 Multivitamins, Thera [Multivitamin (formulary)] 1 tab PO W/LUNCH Omeprazole 20 mg PO DAILY@0800 Glycopyrrolate [Robinul] 1 mg PO TID@0800,1100,1400 Docusate [Colace] 200 mg PO DAILY@1400 levETIRAcetam [Keppra] 500 mg PO HS Carbidopa-Levodopa ER 50-200Mg [Sinemet CR 50-200 mg] 1 tab PO HS Aspirin EC [Ecotrin] 325 mg PO HS Magnesium (Unknown Dose) 1 tab PO DAILY@1700 Discharge Medication List Carbidopa-Levodopa 25-100 mg [Sinemet 25-100] 3 tab PO QID@,,,07/24/19 [History] Multivitamins, Thera [Multivitamin (formulary)] 1 tab PO W/LUNCH 07/24/19 [History] Tamsulosin [Flomax] 0.4 mg PO BID@0800,1400 07/24/19 [History] Aspirin EC [Ecotrin] 325 mg PO HS 12/18/24 [History] Carbidopa-Levodopa ER 50-200Mg [Sinemet CR 50-200 mg] 1 tab PO HS 12/18/24 [History] Docusate [Colace] 200 mg PO DAILY@1400 12/18/24 [History] Glycopyrrolate [Robinul] 1 mg PO TID@0800,1100,1400 12/18/24 [History] Magnesium (Unknown Dose) 1 tab PO DAILY@1700 12/18/24 [History] Omeprazole 20 mg PO DAILY@0800 12/18/24 [History] levETIRAcetam [Keppra] 500 mg PO HS 12/18/24 [History] Follow up Appointment(s)/Referral(s): Rachelle Escalera MD [Primary Care Provider] - 1-2 days - Preliminary Cause of Preliminary Cause of : NSTEMI due to sepsis from aspiration PNA
== END 2024-12-20 20:44 | disposition expired | DRG 871 ==
LOC: EC 16:30 → 5NMEDONC 22:22 → 3SCARD 12-19 07:34 → OBSVTOIN 12-19 09:55 → 2SICU 12-19 13:15
PROVIDERS: ADMIT Internal Medicine; ATTEND Internal Medicine
PROC: 5A09357 Assistance with Respiratory Ventilation, Less than 24 Consecutive Hours, Continuous Positive Airway Pressure (ICD-10-PCS; 2024-12-19)
PROC: 4A023N7 Measurement of Cardiac Sampling and Pressure, Left Heart, Percutaneous Approach (ICD-10-PCS; principal; 2024-12-19 12:30)
PROC: B2111ZZ Fluoroscopy of Multiple Coronary Arteries using Low Osmolar Contrast (ICD-10-PCS; 2024-12-19 12:30)
DX: A41.9 Sepsis, unspecified organism (principal); I21.4 Non-ST elevation (NSTEMI) myocardial infarction; J69.0 Pneumonitis due to inhalation of food and vomit; J96.01 Acute respiratory failure with hypoxia; G20.A1 Parkinson's disease without dyskinesia, without mention of fluctuations; G40.909 Epilepsy, unspecified, not intractable, without status epilepticus; I71.21 Aneurysm of the ascending aorta, without rupture; Z95.3 Presence of xenogenic heart valve; T82.897A Other specified complication of cardiac prosthetic devices, implants and grafts, initial encounter; E87.1 Hypo-osmolality and hyponatremia; N17.9 Acute kidney failure, unspecified; R13.10 Dysphagia, unspecified; Z66 Do not resuscitate; Z51.5 Encounter for palliative care; I71.60 Thoracoabdominal aortic aneurysm, without rupture, unspecified; E87.70 Fluid overload, unspecified; I25.10 Atherosclerotic heart disease of native coronary artery without angina pectoris; E87.5 Hyperkalemia; N40.0 Benign prostatic hyperplasia without lower urinary tract symptoms; K21.9 Gastro-esophageal reflux disease without esophagitis; N52.9 Male erectile dysfunction, unspecified; I35.2 Nonrheumatic aortic (valve) stenosis with insufficiency; Z53.8 Procedure and treatment not carried out for other reasons; Z96.0 Presence of urogenital implants; Y71.2 Prosthetic and other implants, materials and accessory cardiovascular devices associated with adverse incidents; Z79.82 Long term (current) use of aspirin; Z95.5 Presence of coronary angioplasty implant and graft; Z95.0 Presence of cardiac pacemaker; Z87.891 Personal history of nicotine dependence; Z79.899 Other long term (current) drug therapy
CPT/HCPCS: 36415; 36600; 71045; 71275; 80048; 80053; 82805; 83605; 83735; 83880; 84145; 84484; 85025; 85610; 85730; 87040; 87449; 87636; 93005; 93306; 93458; 93567; 94660; 94760; 96365; 96375; 99285; 99291